=== PATIENT | female | born 1965 | race Caucasian/White ===

== ENCOUNTER 2021-01-02 11:51 | Outpatient (REF) | payer MEDICAID, SELFPAY ==
--- NOTE | ~2021-01-02 | XR_ITS ---
EXAMINATION: XR KNEE, RIGHT XR LUMBOSACRAL SPINE. CLINICAL INDICATION: Pain. COMPARISON: None TECHNIQUE: 4 views of the right knee. 3 views of the lumbosacral spine. RIGHT KNEE: 4 views of the right knee and straight lrrh-qb-oavtaanl medial joint space loss. Some marginal spurring is noted here. Mild patellofemoral spurring. No significant effusion. The patella is well seated. LUMBOSACRAL SPINE: 3 views of the lumbosacral spine show normal lordosis. No listhesis or compression injury. Early degeneration with loss of disc height at L4-L5 and L5-S1 greater than other levels. Hypertrophic changes in the posterior elements at L5-S1 greater than L4-L5. The SI joints are grossly patent. Mild scoliosis convex right. Calcified aorta more anterior. XR/XR lumbar spine 2-3V IMPRESSION: Llrv-kp-hafouoao degenerative changes in the lumbar spine most noted mid to lower lumbar region. Gocx-rc-nldejyqr degenerative change in the right knee.
--- NOTE | ~2021-01-02 | XR_ITS ---
EXAMINATION: XR KNEE, RIGHT XR LUMBOSACRAL SPINE. CLINICAL INDICATION: Pain. COMPARISON: None TECHNIQUE: 4 views of the right knee. 3 views of the lumbosacral spine. RIGHT KNEE: 4 views of the right knee and straight exjf-rz-cyrvyjao medial joint space loss. Some marginal spurring is noted here. Mild patellofemoral spurring. No significant effusion. The patella is well seated. LUMBOSACRAL SPINE: 3 views of the lumbosacral spine show normal lordosis. No listhesis or compression injury. Early degeneration with loss of disc height at L4-L5 and L5-S1 greater than other levels. Hypertrophic changes in the posterior elements at L5-S1 greater than L4-L5. The SI joints are grossly patent. Mild scoliosis convex right. Calcified aorta more anterior. XR/XR knee RT 4V IMPRESSION: Dmtk-xy-hzftclox degenerative changes in the lumbar spine most noted mid to lower lumbar region. Fqoy-fj-plcmtsmp degenerative change in the right knee.
[2021-01-02 12:58] LABS: MANUAL DIFF FLAG NO
[2021-01-02 13:02] LABS: Glucose Urine UA NEG (NEG); Leukocyte Esterase Urine NEG (NEG); Nitrite Urine NEG (NEG); PH 6.5 (5.0-8.0); Specific Gravity - Urine <= 1.005 (1.005-1.025); Urine Blood 1+ (NEG); Urine Ketones NEG (NEG); Urine Protein NEG (NEG-TRACE)
[2021-01-02 13:05] LABS: Basophils Absolute Auto 0.1 X10*3/uL (0.0-0.2); Basophils Percent Auto 0.6 % (0-2); Eosinophils Absolute Auto 0.2 X10*3/uL (0.0-0.4); Eosinophils Percent Auto 2.4 % (0-4); Hematocrit 37.2 % (37-47); Hemoglobin 12.5 g/dl (12.0-16.0); Imm Gran Abs Auto 0.03 X10*3/uL (0.00-0.03); Imm Gran Pct Auto 0.4 % (0.0-0.4); Lymphocytes Absolute Auto 1.7 X10*3/uL (1.2-4.9); Lymphocytes Percent Auto 21.2 % (20-40); Mean Corpuscular HGB Conc 33.6 g/dl (31.0-35.0); Mean Corpuscular Hemoglobin 31.6 pg (27.0-33.0); Mean Corpuscular Volume 93.9 fL (80-98); Mean Platelet Volume 9.7 fL (9.4-12.3); Monocytes Absolute Auto 0.5 X10*3/uL (0.1-1.2); Neutrophils Absolute Auto 5.5 X10*3/uL (2.0-8.3); Neutrophils Percent Auto 69.4 % (45-73); Platelet Count 326 X10*3/uL (160-400); Red Blood Count 3.96 X10*6/uL (4.20-5.50); Red Cell Distribution Width 12.6 % (11.0-16.0); White Blood Count 7.9 X10*3/uL (4.8-10.8)
[2021-01-02 13:06] LABS: Appearance Urine HAZY; Color Urine YELLOW
[2021-01-02 13:12] LABS: WBC Urine 0 /HPF (0-4)
[2021-01-02 13:22] LABS: Alanine Aminotransferase 16 U/L (0-31); Albumin Level 4.3 g/dL (3.5-5.0); Alkaline Phosphatase 54 U/L (39-117); Anion Gap 12 (12-20); Aspartate Amino Transferase 13 U/L (5-31); Bilirubin Total < 0.2 mg/dL (0.0-1.0); Blood Urea Nitrogen 10 mg/dL (9-16); Calcium 9.5 mg/dL (8.4-10.2); Carbon Dioxide 30 mmol/L (22-29); Chloride 103 mmol/L (96-108); Cholesterol 313 mg/dL; Estimated Glomerular Filt Rate > 60; Glucose Fasting 103 mg/dL (60-99); HDL Cholesterol 43 mg/dL; LDL Cholesterol Calculated 226 mg/dl; Potassium 4.1 mmol/L (3.3-5.1); Sodium 141 mmol/L (135-145); Triglycerides 221 mg/dL
[2021-01-02 13:43] LABS: Free T4 (Free Thyroxine) 0.89 ng/dL (0.71-1.85)
== END 2021-01-02 11:52 | disposition home or self-care (01) ==
LOC: HO.LAB 11:51
PROVIDERS: PCP Internal Medicine; Visit Provider Internal Medicine
DX: I10 Essential (primary) hypertension (principal); K21.9 Gastro-esophageal reflux disease without esophagitis; R06.02 Shortness of breath; M54.9 Dorsalgia, unspecified; M25.561 Pain in right knee
CPT/HCPCS: 36415; 72100; 73564; 80053; 80061; 81001; 81003; 84439; 84443; 85025; 87086

== ENCOUNTER 2021-03-14 12:42 | Outpatient (REF) | payer MEDICAID, SELFPAY ==
--- NOTE | ~2021-03-14 | MM_ITS ---
EXAMINATION: MM SCREENING DIGITAL BREAST TOMOSYNTHESIS, BILATERAL CLINICAL INFORMATION: Screening. Asymptomatic. Remote prior mammography over 10 years ago, purged. No known family history breast cancer. The lifetime risk of breast cancer based on the Tyrer-Cuzick Model is 5%. COMPARISON: None (current study represents new baseline exam). TECHNIQUE: Digital breast tomosynthesis is performed in both the craniocaudal and mediolateral oblique views along with computer-aided detection (CAD). Synthesized 2D images are generated from the tomosynthesis. FINDINGS: There are scattered areas of fibroglandular density (ACR BI-RADS breast composition Category b). There are no significant masses, abnormal calcifications, or other abnormalities. The axilla and skin contours are unremarkable. MM/MM tomosynthesis screening BI IMPRESSION: No mammographic evidence of malignancy. ASSESSMENT: BI-RADS 1: Negative RECOMMENDATION: Routine annual mammography screening. This patient's information was entered into a reminder system with a target due date for their next mammogram.
--- NOTE | ~2021-03-14 | MM_ITS ---
EXAMINATION: BONE DENSITOMETRY CLINICAL INDICATION: Encounter for screening for osteoporosis. COMPARISON: None (current study represents initial baseline exam). TECHNIQUE: Using a [employer] Mobile DXA System (software version: 13.1) manufactured by [employer], dual-energy x-ray absorptiometry was performed of the lumbar spine and left hip. The images are of good technical quality. Summary results are attached. FINDINGS: AP SPINE L1-L4: BMD 1.197 g/cm2, Z-score 0.5, T-score 0.1, normal. LEFT FEMUR, NECK: BMD 0.843 g/cm2, Z-score -0.7, T-score -1.4, osteopenia. LEFT FEMUR, TOTAL: BMD 1.022 g/cm2, Z-score 0.5, T-score 0.1, normal. IDENTIFIED RISK FACTORS: Early menopause, secondary osteoporosis, low calcium intake, thiazide. HISTORY OF FRACTURE: None listed. MEDICATIONS: None listed. MM/XR DEXA axial skeleton IMPRESSION: 1. DIAGNOSIS: Osteopenia based on the lowest T-score value of -1.4 in the femoral neck applying World Health Organization criteria. 2. 10-YEAR FRACTURE RISK PREDICTION, FRAX: Major osteoporotic fracture (clinical spine, forearm, hip or shoulder) 6.4%. Hip fracture 0.4%. 3. Treatment Recommendations: NOF guidelines recommend consideration for treatment in postmenopausal women and men age 50 and older presenting with the following: -A hip or vertebral (clinical or morphometric) fracture. -T-score less than or equal to -2.5 at the femoral neck or spine after appropriate evaluation to exclude secondary causes. -Low bone mass at the hip or spine and a 10-year fracture probability by FRAX of greater than or equal to 3% for hip fracture or greater than or equal to 20% for major osteoporotic fracture based on the [place] adapted WHO algorithm. 4. Other Recommendations: All treatment decisions require clinical judgment and consideration of individual patient factors, including patient preferences, comorbidities, previous drug use, risk factors not captured in the FRAX model (e.g. frailty, falls, vitamin D deficiency, increased bone turnover, interval significant decline in bone density) and possible under or overestimation of fracture risk by FRAX. Additional medical evaluation for secondary cause of low bone mineral density may be appropriate. FUTURE SCAN RECOMMENDATION: People with diagnosed cases of osteoporosis or at high risk for fracture should have regular bone mineral density tests. For patients eligible for Medicare, routine testing is allowed once every 2 years. The testing frequency can be increased to one year for patients who have rapidly progressing disease, those who are receiving or discontinuing medical therapy to restore bone mass, or have additional risk factors.
== END 2021-03-14 12:43 | disposition home or self-care (01) ==
LOC: HO.MAMMO 12:42
PROVIDERS: Visit Provider Internal Medicine
DX: Z12.31 Encounter for screening mammogram for malignant neoplasm of breast (principal); Z13.820 Encounter for screening for osteoporosis; M85.80 Other specified disorders of bone density and structure, unspecified site; Z78.0 Asymptomatic menopausal state
CPT/HCPCS: 77063; 77067; 77080

== ENCOUNTER 2021-03-29 10:14 | Outpatient (REF) | payer MEDICAID, SELFPAY ==
[2021-03-29 11:18] LABS: Alanine Aminotransferase 16 U/L (0-31); Albumin Level 4.6 g/dL (3.5-5.0); Alkaline Phosphatase 57 U/L (39-117); Anion Gap 14 (12-20); Aspartate Amino Transferase 17 U/L (5-31); Bilirubin Total 0.5 mg/dL (0.0-1.0); Blood Urea Nitrogen 9 mg/dL (9-16); Calcium 9.7 mg/dL (8.4-10.2); Carbon Dioxide 29 mmol/L (22-29); Chloride 102 mmol/L (96-108); Cholesterol 217 mg/dL; Estimated Glomerular Filt Rate > 60; Glucose Fasting 111 mg/dL (60-99); HDL Cholesterol 42 mg/dL; LDL Cholesterol Calculated 145 mg/dl; Potassium 3.6 mmol/L (3.3-5.1); Sodium 141 mmol/L (135-145); Total Protein 7.5 g/dL (6.5-8.0); Triglycerides 153 mg/dL
== END 2021-03-29 10:15 | disposition home or self-care (01) ==
LOC: HO.LAB 10:14
PROVIDERS: Visit Provider Internal Medicine
DX: I10 Essential (primary) hypertension (principal); E78.00 Pure hypercholesterolemia, unspecified
CPT/HCPCS: 36415; 80053; 80061

== ENCOUNTER 2021-05-04 12:11 | Outpatient (REF) | payer MEDICAID, SELFPAY ==
[2021-05-07 09:43] LABS: TS Negative Control Passed; TS Panel A 0; TS Panel B 0; TS Positive Control Passed; TSpotTB Negative (Negative)
== END 2021-05-04 12:12 | disposition home or self-care (01) ==
LOC: HO.HMGCLDS 12:11
PROVIDERS: PCP Internal Medicine; Visit Provider Internal Medicine
DX: Z11.1 Encounter for screening for respiratory tuberculosis (principal)
CPT/HCPCS: 36415; 86481

== ENCOUNTER 2021-12-21 09:59 | Outpatient (REF) | payer MEDICAID, SELFPAY ==
--- NOTE | ~2021-12-21 | XR_ITS ---
EXAMINATION: XR KNEE, LEFT CLINICAL INFORMATION: Pain. No known injury. COMPARISON: Radiograph of the right knee 01/02/2021. TECHNIQUE: Four views of the left knee. FINDINGS: No acute fracture or malalignment. Mild to moderate joint space narrowing and subcortical sclerosis of the medial compartment. Minimal chondrocalcinosis of the medial compartment. Small calcifications along the insertion site of the quadriceps tendon. No joint effusion. XR/XR knee LT 4V IMPRESSION: No acute fracture or malalignment. 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 Calcific tendinosis along the insertion site of the quadriceps tendon.
[2021-12-21 10:20] LABS: MANUAL DIFF FLAG NO
[2021-12-21 10:59] LABS: Basophils Absolute Auto 0.1 X10*3/uL (0.0-0.2); Basophils Percent Auto 0.7 % (0-2); Eosinophils Absolute Auto 0.3 X10*3/uL (0.0-0.4); Eosinophils Percent Auto 3.8 % (0-4); Hematocrit 37.8 % (37.0-47.0); Hemoglobin 12.9 g/dl (12.0-16.0); Imm Gran Abs Auto 0.03 X10*3/uL (0.00-0.03); Imm Gran Pct Auto 0.4 % (0.0-0.4); Lymphocytes Percent Auto 26.2 % (20-40); Mean Corpuscular HGB Conc 34.1 g/dl (31.0-35.0); Mean Corpuscular Hemoglobin 32.4 pg (27.0-33.0); Mean Platelet Volume 9.9 fL (9.4-12.3); Monocytes Absolute Auto 0.4 X10*3/uL (0.1-1.2); Monocytes Percent Auto 5.6 % (2-11); Neutrophils Absolute Auto 4.7 x10*3/uL (2.0-8.3); Neutrophils Percent Auto 63.3 % (45-73); Platelet Count 283 X10*3/uL (160-400); Red Blood Count 3.98 X10*6/uL (4.20-5.50); Red Cell Distribution Width 13.2 % (11.0-16.0); White Blood Count 7.5 X10*3/uL (4.8-10.8)
[2021-12-21 11:32] LABS: Alanine Aminotransferase 14 U/L (0-31); Albumin Level 4.4 g/dL (3.5-5.0); Alkaline Phosphatase 44 U/L (39-117); Anion Gap 15 (12-20); Aspartate Amino Transferase 14 U/L (5-31); Bilirubin Total 0.4 mg/dL (0.0-1.0); Blood Urea Nitrogen 8 mg/dL (9-16); Calcium 9.3 mg/dL (8.4-10.2); Carbon Dioxide 27 mmol/L (22-29); Chloride 103 mmol/L (96-108); Estimated Glomerular Filt Rate > 60; Glucose Random 108 mg/dL (60-115); Potassium 3.9 mmol/L (3.3-5.1); Sodium 141 mmol/L (135-145); Total Protein 6.9 g/dL (6.5-8.0)
[2021-12-21 11:41] LABS: Free T4 (Free Thyroxine) 0.97 ng/dL (0.71-1.85); Thyroid Stimulating Hormone 1.54 uIU/mL (0.32-4.0)
[2021-12-21 11:54] LABS: Vitamin B12 < 146 pg/mL (200-900)
== END 2021-12-21 10:00 | disposition home or self-care (01) ==
LOC: HO.XRAY 09:59
PROVIDERS: PCP Internal Medicine; Visit Provider Internal Medicine
DX: M25.562 Pain in left knee (principal); I10 Essential (primary) hypertension; R53.83 Other fatigue
CPT/HCPCS: 36415; 73564; 80053; 82607; 84439; 84443; 85025

== ENCOUNTER → 2022-02-01 11:00 | Day surgery (SDC) | payer MEDICAID, SELFPAY ==
--- NOTE | 2022-01-31 09:31 | HO.ANESPROP2 ---
Documented by User: Rosa Finley NP 01/31/22 09:32 HPI - Anesthesia Eval Consult details Narrative: 56yo F for Colonoscopy [facility] Past Medical History Medical History Hypercholesteremia Hypertension Melanoma Surgical History Surgical History History of tonsillectomy History of tooth extraction History of tubal ligation Hx of section S/P excision of lipoma Social History Social History Patient Tobacco Use Status: Never used Tobacco Use of substances other than those prescribed or required for medical reasons: Yes Substance Use Type Other:: 2x week Are you DNR?: No Advance Directives: No Advance Directives Information Provided: Yes Meds Allergies Allergy/AdvReac Type Severity Reaction Status Date / Time latex [LATEX] Allergy Mild ITCHING Unverified 01/29/22 10:39 cats Allergy Unknown Unknown Uncoded 01/29/22 10:39 Home Medications Medication Instructions Recorded Confirmed Last Taken Type amlodipine 5 mg tablet 1 tab PO DAILY 01/29/22 02/01/22 02/01/22 History atorvastatin 20 mg tablet 1 tab PO BEDTIME 01/29/22 01/29/22 Unknown History cholecalciferol (vitamin D3) 50 50 mcg PO DAILY 01/29/22 01/29/22 Unknown History mcg (2,000 unit) capsule (Vitamin D3) hydrochlorothiazide 25 mg tablet 1 tab PO DAILY 01/29/22 01/29/22 Unknown History vitamin B complex 1 cap PO DAILY 01/29/22 01/29/22 Unknown History Exam Exam Date and Time: January 31, [id number] Pertinent Lab Results Pertinent Lab Results: Laboratory Tests 12/21/21 12/21/21 10:18 10:18 WBC 7.5 Hgb 12.9 Hct 37.8 Plt Count 283 Sodium 141 Potassium 3.9 Chloride 103 Carbon Dioxide 27 BUN 8 L Creatinine 0.73 Assessment and Plan Assessment Anesthesia Assessment: Chart Reviewed Documented by User: Eleni Tolliver MD 02/01/22 12:44 [facility] Past Medical History Medical History Hypercholesteremia Hypertension Melanoma Family History Family history of problems with anesthesia: No Surgical History Surgical History History of tonsillectomy History of tooth extraction History of tubal ligation Hx of section S/P excision of lipoma History of Problems with Anesthesia: No Social History Social History Patient Tobacco Use Status: Never used Tobacco Use of substances other than those prescribed or required for medical reasons: Yes Substance Use Type Other:: 2x week Are you DNR?: No Advance Directives: No Advance Directives Information Provided: Yes Meds Allergies Allergy/AdvReac Type Severity Reaction Status Date / Time latex [LATEX] Allergy Mild ITCHING Unverified 01/29/22 10:39 cats Allergy Unknown Unknown Uncoded 01/29/22 10:39 Home Medications Medication Instructions Recorded Confirmed Last Taken Type amlodipine 5 mg tablet 1 tab PO DAILY 01/29/22 02/01/22 02/01/22 History atorvastatin 20 mg tablet 1 tab PO BEDTIME 01/29/22 01/29/22 Unknown History cholecalciferol (vitamin D3) 50 50 mcg PO DAILY 01/29/22 01/29/22 Unknown History mcg (2,000 unit) capsule (Vitamin D3) hydrochlorothiazide 25 mg tablet 1 tab PO DAILY 01/29/22 01/29/22 Unknown History vitamin B complex 1 cap PO DAILY 01/29/22 01/29/22 Unknown History Exam Height,Weight and Vital Signs: Height 4 ft 10 in Weight 83.461 kg Vital Signs Temp Pulse Resp BP Pulse Ox O2 Del Method 02/01/22 11:25 97.5 F 85 16 165/83 H 97 Room Air Airway Mallampati Class: II TM Dist: >3cm Neck ROM: Full Denture: Upper Partial: Lower Loose/Missing/Broken Teeth: Yes (Some teeth bottom. None loose or broken ) Heart: RRR Lungs: CTAB Assessment and Plan Assessment Anesthesia Assessment: Anesthesia Plan Discussed Final Anesthetic Review Family History of Problems with Anesthesia: No History of Problems with Anesthesia: No NPO: Yes ASA Class: II Final Preanesthetic Review: No Changes in Pt Med Stat, Meds/Allgs Chart Reviewed, Consent Obtained/Reviewed and Anes Risks/Benef Reviewed Patient Risk: Low Procedure Risk: Low Assessment/Block/Sedation in SS: Assess/Block/Sedation-SS Anesthetic Plan Anesthetic Plan: MAC: Disposition: Standard PACU
[2022-02-01 11:17] VITALS: BMI 38.4
[2022-02-01 11:25] VITALS: BP 165/83; PULSE 85; RESP 16; TEMP 36.4; O2SAT 97
[2022-02-01 11:26] VITALS: BMI 38.4
[2022-02-01] MEDS: Lactated Ringers 1,000 ML 100 ML IVCONT (11:42)
--- NOTE | 2022-02-01 12:20 | MHC.SHP ---
Pre-Procedural Eval Section A Date of Service: 02/01/22 Section B Chief Complaint: screening Details of Present Illness: see H&P no changes Relevant Family History (Specify if Yes): No Relevant Social History: None Present Medications: see Short Stay Collaborative assessment Medical History: No relevant PMH History of Previous Operations: No relevant previous surgery Allergies: Allergies Allergy/AdvReac Type Severity Reaction Status Date / Time latex [LATEX] Allergy Mild ITCHING Unverified 01/29/22 10:39 cats Allergy Unknown Unknown Uncoded 01/29/22 10:39 Review of Systems Sugical H&P ROS: Negative: Constitution, Cardiovascular, Respiratory, Neurological, Psychiatric, Hem-Onc, Allergic/Immunologic, Gastrointestinal, Genitourinary, Musculoskeletal, Integumentary, Endocrine and Eyes/Ears/Nose/Throat Exam Surgical H&P Exam: Normal: HEENT, Normal: Heart, Normal: Lungs, Normal: Extremities, Normal: Abdomen, Normal: Skin and Normal: Neurological Plan I have reviewed the history and physical and performed a pertinent physical examination on my patient. No changes have occurred unless specified.
--- NOTE | 2022-02-01 12:48 | PM.OP ---
Brief Operative Note Date of Service: 02/01/22 Surgeon: Edmar Powell Anesthesia: MAC Was an Logistics Team Leader used for this Procedure?: No Estimated blood loss (mL): 0 Pathology: none sent Condition: stable Disposition: PACU
[2022-02-01 12:52] VITALS: BP 103/57; PULSE 67; RESP 16; TEMP 37.2; O2SAT 99
[2022-02-01 13:07] VITALS: BP 125/67; PULSE 68; RESP 16; TEMP 36.4; O2SAT 97
--- NOTE | 2022-02-02 01:35 | OP_ITS ---
SURGEON: Edmar Powell MD INDICATIONS: Colon cancer screening. PREOPERATIVE DIAGNOSIS: POSTOPERATIVE DIAGNOSIS: PROCEDURE PERFORMED: Colonoscopy to the terminal colon on 02/01/22 ESTIMATED BLOOD LOSS: COMPLICATIONS: ANESTHESIA: ASSISTANTS: SPECIMENS: MEDICATIONS: Monitored anesthesia care. DESCRIPTION OF PROCEDURE: History and Physical performed. The risks and benefits of the procedure were explained to the patient. Informed consent was obtained. The patient was placed in the left lateral decubitus position. A digital rectal exam was performed and was found to be normal. The Olympus pediatric video colonoscope was introduced into the rectum and advanced to the cecum without difficulty. The cecum was identified by transillumination, palpation, and identification of ileocecal valve examination was performed. The scope was removed. She tolerated the procedure well and was taken to recovery in stable condition. FINDINGS: The terminal ileum was normal. Visualized colonic mucosa was normal. Quality of the prep was good. No polyps were identified. Retroflexed examination was normal. IMPRESSION: Normal colonoscopy. RECOMMENDATIONS: 1. Follow up as needed. 2. Repeat colonoscopy is recommended in 10 years for average risk individuals. MD RAMIREZ Smith/ABDIFATAH / [id number] MTDD
== END | disposition home or self-care (01) ==
PROVIDERS: PCP Internal Medicine; Visit Provider Internal Medicine Gastroenterology
PROC: 0DJD8ZZ Inspection of Lower Intestinal Tract, Via Natural or Artificial Opening Endoscopic (ICD-10-PCS; CPT 45378; principal; 2022-02-01 12:10)
DX: Z12.11 Encounter for screening for malignant neoplasm of colon (principal); K59.00 Constipation, unspecified; R53.83 Other fatigue; I10 Essential (primary) hypertension; E78.00 Pure hypercholesterolemia, unspecified; Z85.820 Personal history of malignant melanoma of skin; Z79.899 Other long term (current) drug therapy; Z98.51 Tubal ligation status
CPT/HCPCS: 45378; J1885; J3010

== ENCOUNTER 2022-06-11 12:24 | Outpatient (REF) | payer MEDICAID, SELFPAY ==
[2022-06-11 12:38] LABS: MANUAL DIFF FLAG NO
[2022-06-11 13:12] LABS: Basophils Absolute Auto 0.1 X10*3/uL (0.0-0.2); Basophils Percent Auto 1.1 % (0-2); Eosinophils Absolute Auto 0.2 X10*3/uL (0.0-0.4); Eosinophils Percent Auto 3.2 % (0-4); Hematocrit 40.7 % (37.0-47.0); Hemoglobin 13.7 g/dl (12.0-16.0); Imm Gran Abs Auto 0.04 X10*3/uL (0.00-0.03); Imm Gran Pct Auto 0.6 % (0.0-0.4); Lymphocytes Absolute Auto 1.9 X10*3/uL (1.2-4.9); Lymphocytes Percent Auto 26.6 % (20-40); Mean Corpuscular HGB Conc 33.7 g/dl (31.0-35.0); Mean Corpuscular Hemoglobin 31.4 pg (27.0-33.0); Mean Corpuscular Volume 93.3 fL (80.0-98.0); Mean Platelet Volume 10.3 fL (9.4-12.3); Monocytes Absolute Auto 0.5 X10*3/uL (0.1-1.2); Monocytes Percent Auto 6.8 % (2-11); Neutrophils Absolute Auto 4.5 x10*3/uL (2.0-8.3); Neutrophils Percent Auto 61.7 % (45-73); Platelet Count 252 X10*3/uL (160-400); Red Blood Count 4.36 X10*6/uL (4.20-5.50); Red Cell Distribution Width 12.6 % (11.0-16.0); White Blood Count 7.2 X10*3/uL (4.8-10.8)
[2022-06-11 14:33] LABS: Alanine Aminotransferase 12 U/L (0-31); Albumin Level 4.4 g/dL (3.5-5.0); Alkaline Phosphatase 42 U/L (39-117); Anion Gap 13 (12-20); Aspartate Amino Transferase 15 U/L (5-31); Bilirubin Total 0.3 mg/dL (0.0-1.0); Blood Urea Nitrogen 10 mg/dL (9-16); C Reactive Protein 0.31 mg/dL (< or = 0.50); Calcium 9.9 mg/dL (8.4-10.2); Carbon Dioxide 29 mmol/L (22-29); Chloride 103 mmol/L (96-108); Estimated Glomerular Filt Rate > 60; Glucose Random 113 mg/dL (60-115); Sodium 141 mmol/L (135-145); Total Protein 7.2 g/dL (6.5-8.0)
[2022-06-11 14:52] LABS: Free T4 (Free Thyroxine) 0.84 ng/dL (0.71-1.85); Thyroid Stimulating Hormone 3.54 uIU/mL (0.32-4.0)
== END 2022-06-11 12:25 | disposition home or self-care (01) ==
LOC: HO.LAB 12:24
PROVIDERS: PCP Internal Medicine; Visit Provider Internal Medicine
DX: I10 Essential (primary) hypertension (principal); R53.83 Other fatigue; R25.1 Tremor, unspecified; M62.838 Other muscle spasm
CPT/HCPCS: 36415; 80053; 83735; 84439; 84443; 85025; 86140

== ENCOUNTER 2022-07-08 09:30 | Outpatient (REF) | payer MEDICAID, SELFPAY ==
--- NOTE | ~2022-07-08 | XR_ITS ---
EXAMINATION: XR KNEE, RIGHT CLINICAL INFORMATION: Pain. COMPARISON: January 02, 2021 TECHNIQUE: Four views of the right knee. FINDINGS: There is no evidence of acute fracture or dislocation of the right knee. There is mild narrowing of the medial joint space compartment. There is mild marginal spurring seen about the medial and lateral joint spaces. There is a small suprapatellar effusion. There is a small patella spurs at insertion of the quadriceps tendon. There is superior and inferior patella spurring at the patellofemoral joint involving the medial facet. XR/XR knee RT 4V IMPRESSION: Mild degenerative disease about the medial and patellofemoral joints. Small suprapatellar effusion. These findings are stable.
--- NOTE | ~2022-07-08 | XR_ITS ---
EXAMINATION: XR CERVICAL SPINE CLINICAL INFORMATION: Cervical pain COMPARISON: None TECHNIQUE: 5 views of the cervical spine. FINDINGS: No abnormal prevertebral soft tissue swelling is seen. No acute spine fracture is noted. There is narrowing of the C5-C6 disc space with marginal spurring. There is some anterior neural foraminal encroachment at the C5-C6 level from spurring of the joints of [place] bilaterally. There are small C7 cervical ribs. There is some facet arthropathy present at the C3-C5 levels on the right and C2-C6 on the left. XR/XR cervical spine 5V IMPRESSION: Cervical spondylosis as described.
--- NOTE | ~2022-07-08 | XR_ITS ---
EXAMINATION: XR HAND, RIGHT CLINICAL INFORMATION: Right hand pain COMPARISON: None TECHNIQUE: PA, lateral, and oblique views of the right hand. FINDINGS: There is no evidence of acute fracture or dislocation of the right hand. There is some mild spurring seen involving the 1st carpometacarpal joint. There is mild spurring seen involving the 1st interphalangeal joint as well as all of the distal interphalangeal joints. XR/XR hand RT min 3V IMPRESSION: Mild degenerative change as described.
== END 2022-07-08 09:31 | disposition home or self-care (01) ==
LOC: HO.XRAY 09:30
PROVIDERS: PCP Internal Medicine; Visit Provider Internal Medicine
DX: M54.2 Cervicalgia (principal); M79.641 Pain in right hand; M25.531 Pain in right wrist; M25.561 Pain in right knee
CPT/HCPCS: 72050; 73130; 73564

== ENCOUNTER 2022-09-24 10:18 | Outpatient (REF) | payer MEDICAID, SELFPAY ==
[2022-09-24 11:15] LABS: Anion Gap 13 (12-20); Blood Urea Nitrogen 8 mg/dL (9-16); Calcium 9.7 mg/dL (8.4-10.2); Carbon Dioxide 27 mmol/L (22-29); Chloride 105 mmol/L (96-108); Estimated Glomerular Filt Rate > 60; Glucose Random 117 mg/dL (60-115); Potassium 3.7 mmol/L (3.3-5.1); Sodium 141 mmol/L (135-145)
[2022-09-24 11:23] LABS: Estimated Average Glucose 97 mg/dL
[2022-09-24 11:36] LABS: Free T4 (Free Thyroxine) 0.94 ng/dL (0.71-1.85)
== END 2022-09-24 10:19 | disposition home or self-care (01) ==
LOC: HO.LAB 10:18
PROVIDERS: PCP Internal Medicine; Visit Provider Internal Medicine
DX: R73.03 Prediabetes (principal); I10 Essential (primary) hypertension; R79.89 Other specified abnormal findings of blood chemistry
CPT/HCPCS: 36415; 80048; 83036; 84439; 84443

== ENCOUNTER 2022-10-25 15:44 | Outpatient (REF) | payer MEDICAID, SELFPAY ==
--- NOTE | ~2022-10-25 | MR_ITS ---
EXAMINATION: MR CERVICAL SPINE WITHOUT CONTRAST CLINICAL INFORMATION: DDD. Bilateral arm numbness lying flat. COMPARISON: None available. TECHNIQUE: MRI of the cervical spine was performed using routine sequences without contrast. FINDINGS: The cervical vertebral bodies maintain normal heights. There is advanced disc height loss at C5-C6 with endplate edema. The remainder the disc heights are fairly well preserved. No cord signal abnormality is seen. The imaged intracranial contents and extraspinal soft tissues appear normal. There is scarring within the posterior midline subcutaneous fat. SPINAL LEVELS: C2-C3: No posterior disc abnormality. Moderate left facet arthropathy. No spinal canal or neural foraminal stenosis. C3-C4: No posterior disc abnormality. Moderate left facet arthropathy. No spinal canal or neural foraminal stenosis. C4-C5: No posterior disc abnormality. Moderate right and mild left facet arthropathy. No spinal canal or neural foraminal stenosis. C5-C6: Disc osteophyte complex with ligamentum flavum infolding resulting in moderate spinal canal stenosis with ventral cord deformity. Uncovertebral hypertrophy results in severe bilateral neural foraminal stenosis. C6-C7: Disc bulging causing mild spinal canal stenosis with flattening of the ventral thecal sac. Mild left neural foraminal stenosis. C7-T1: No posterior disc abnormality. No spinal canal or neural foraminal stenosis. MR/MR cervical spine wo con IMPRESSION: 1. At C5-C6 there is advanced disc height loss with endplate edema. Disc osteophyte complex and uncovertebral hypertrophy results in moderate spinal canal stenosis with ventral cord deformity and severe bilateral neural foraminal stenosis. 2. Additional milder spondylotic changes are noted above.
== END 2022-10-25 15:45 | disposition home or self-care (01) ==
LOC: HO.MRI 15:44
PROVIDERS: PCP Internal Medicine; Visit Provider Internal Medicine
DX: M50.33 Other cervical disc degeneration, cervicothoracic region (principal)
CPT/HCPCS: 72141

== ENCOUNTER 2023-01-21 09:35 | Outpatient (REF) | payer MEDICAID, SELFPAY ==
[2023-01-21 10:23] LABS: MANUAL DIFF FLAG NO
[2023-01-21 10:26] LABS: Basophils Absolute Auto 0.1 X10*3/uL (0.0-0.2); Basophils Percent Auto 0.9 % (0-2); Eosinophils Absolute Auto 0.5 X10*3/uL (0.0-0.4); Eosinophils Percent Auto 5.7 % (0-4); Hematocrit 40.6 % (37.0-47.0); Hemoglobin 13.6 g/dl (12.0-16.0); Imm Gran Abs Auto 0.03 X10*3/uL (0.00-0.03); Imm Gran Pct Auto 0.3 % (0.0-0.4); Lymphocytes Absolute Auto 2.2 X10*3/uL (1.2-4.9); Lymphocytes Percent Auto 25.4 % (20-40); Mean Corpuscular HGB Conc 33.5 g/dl (31.0-35.0); Mean Corpuscular Hemoglobin 30.8 pg (27.0-33.0); Mean Corpuscular Volume 92.1 fL (80.0-98.0); Mean Platelet Volume 10.5 fL (9.4-12.3); Monocytes Absolute Auto 0.6 X10*3/uL (0.1-1.2); Neutrophils Absolute Auto 5.2 x10*3/uL (2.0-8.3); Neutrophils Percent Auto 60.7 % (45-73); Platelet Count 255 X10*3/uL (160-400); Red Blood Count 4.41 X10*6/uL (4.20-5.50); Red Cell Distribution Width 12.5 % (11.0-16.0); White Blood Count 8.6 X10*3/uL (4.8-10.8)
[2023-01-21 14:02] LABS: Alanine Aminotransferase 13 U/L (0-31); Albumin Level 4.4 g/dL (3.5-5.0); Alkaline Phosphatase 39 U/L (39-117); Anion Gap 14 (12-20); Aspartate Amino Transferase 19 U/L (5-31); Bilirubin Total 0.4 mg/dL (0.0-1.0); Blood Urea Nitrogen 11 mg/dL (9-16); Calcium 9.9 mg/dL (8.4-10.2); Carbon Dioxide 28 mmol/L (22-29); Chloride 104 mmol/L (96-108); Cholesterol 241 mg/dL (<200); Estimated Glomerular Filt Rate > 60; Glucose Fasting 99 mg/dL (60-99); HDL Cholesterol 44 mg/dL (>40); LDL Cholesterol Calculated 149 mg/dL (<100); Potassium 3.6 mmol/L (3.3-5.1); Sodium 142 mmol/L (135-145); Total Protein 7.4 g/dL (6.5-8.0); Triglycerides 243 mg/dL (<150)
[2023-01-21 14:17] LABS: Vitamin B12 1270 pg/mL (200-900)
[2023-01-21 14:21] LABS: Vitamin D 25-OH Total 50.8 ng/mL (>30)
== END 2023-01-21 09:36 | disposition home or self-care (01) ==
LOC: HO.10HDL 09:35
PROVIDERS: Visit Provider Internal Medicine
DX: I10 Essential (primary) hypertension (principal); E78.00 Pure hypercholesterolemia, unspecified; E55.9 Vitamin D deficiency, unspecified; K21.9 Gastro-esophageal reflux disease without esophagitis; E53.8 Deficiency of other specified B group vitamins
CPT/HCPCS: 36415; 80053; 80061; 82306; 82607; 85025

== ENCOUNTER 2023-02-27 10:49 | Inpatient (IN) | payer MEDICAID, SELFPAY ==
[2023-02-27 10:51] VITALS: BP 156/51; PULSE 77; RESP 18; TEMP 36.8; O2SAT 98; BMI 37.2
--- NOTE | 2023-02-27 10:51 | ED.GENADULT ---
HPI - General Adult General Chief complaint: Weakness Stated complaint: nausea vomiting surgery feb 19 Time Seen by Provider: 02/27/23 12:04 Related Data Home Medications Medication Instructions Recorded Confirmed amlodipine 5 mg tablet 1 tab PO DAILY 01/29/22 02/27/23 atorvastatin 20 mg tablet 1 tab PO BEDTIME 01/29/22 02/27/23 cholecalciferol (vitamin D3) 50 50 mcg PO DAILY 01/29/22 02/27/23 mcg (2,000 unit) capsule (Vitamin D3) hydrochlorothiazide 25 mg tablet 1 tab PO DAILY 01/29/22 02/27/23 vitamin B complex 1 cap PO DAILY 01/29/22 02/27/23 famotidine 20 mg tablet 20 mg PO BID 02/27/23 02/27/23 losartan 100 mg tablet 100 mg PO DAILY 02/27/23 02/27/23 oxycodone 5 mg tablet 5 mg PO Q4H PRN pain 02/27/23 02/27/23 Previous Rx's Medication Instructions Recorded magnesium oxide 400 mg (241.3 mg 400 mg PO DAILY #90 tabs 03/03/23 magnesium) tablet ondansetron 4 mg disintegrating 4 mg PO Q6H PRN nausea and 03/03/23 tablet vomiting #20 tabs Allergies Allergy/AdvReac Type Severity Reaction Status Date / Time latex [LATEX] Allergy Mild ITCHING Verified 02/27/23 10:54 cats Allergy Unknown Unknown Uncoded 01/29/22 10:39 [facility] Past Medical History Medical History Hypercholesteremia Hypertension Melanoma Surgical History History of tooth extraction S/P excision of lipoma History of tubal ligation Hx of section History of tonsillectomy Social History Social History Housing Other:: Two family house, daughter lives on first floor Do you presently have visiting nurse or other home services: No Patient Tobacco Use Status: Never used Tobacco Smoked in Last 30 Days: No Patient Interested in Nicotine Replacement: No Patient Given Instructions on How to Stop Smoking: No Second Hand Smoke Exposure: No Use of substances other than those prescribed or required for medical reasons: Yes Substance Use Type: Marijuana Substance Use Frequency: Daily Last Used Substance: Days (ago) Currently Displaying Signs/Symptoms of Drug Intoxication Withdrawal: No Any prior treatment program specific to substance use: No Have you been hit, kicked, punched, or otherwise hurt by someone within the past year? If so, by whom?: No Do you feel safe in your current relationship?: No Current Relationship Is there a partner from a previous relationship who is making you feel unsafe now?: No Are you made to feel afraid or neglected: No Advance Directives: No Advance Directives Information Provided: No (DECLINED) Do you have thoughts of harming others: None Do you have a plan to hurt others: No Plan Recently lost weight without trying: No How much weight loss: Not applicable Eating poorly because of decreased appetite: Yes Nutrition screen score: 1 Nutrition Risks: Poor intake 0-25% >4 days Patient : No : No Poor oral hygiene: No service: No Physical Exam ED Vital Signs: BMI result Body Mass Index 37.2 Course Course Course Narrative: This is a rapid medical exam: Additional HPI, ROS, PE not included below will be deferred to primary provider. Patient is a 58-year-old female presenting to the emergency department with complaint of shakiness, headaches, nausea, vomiting, diarrhea and weakness for past 3-4 days. Has been unable to take her medications due to nausea. Had spinal surgery at [facility] one week ago, called surgeon who referred patient to urgent care, felt was unrelated to surgery. Also reports difficulty sleeping. Denies neck pain and reports pain radiating down right arm has also improved since surgery. BP elevated in triage, VS otherwise WNL. Abdomen soft and nontender. Plan: labs, UA Medications Administered Discontinued Medications Generic Name Dose Route Start Last Admin Trade Name Freq PRN Reason Stop Dose Admin Amlodipine Besylate 5 mg 02/27/23 16:00 03/03/23 07:58 Amlodipine Besylate 5 Mg Tablet PO 5 mg DAILY EMILY Administration Protocol Atorvastatin Calcium 20 mg 02/27/23 21:00 03/02/23 20:21 Atorvastatin Calcium 20 Mg Tablet PO 20 mg BEDTIME EMILY Administration Bisacodyl 10 mg 03/01/23 10:06 03/01/23 11:33 Bisacodyl 10 Mg Supp.Rect RI 03/01/23 10:07 10 mg ONCE ONE Administration Diphenhydramine HCl 25 mg 02/27/23 13:54 02/27/23 14:05 Diphenhydramine Hcl 50 Mg/Ml Vial IVPUSH 02/27/23 13:55 25 mg ONCE ONE Administration Enoxaparin Sodium 40 mg 02/27/23 15:00 03/02/23 15:52 Enoxaparin Sodium 40 Mg/0.4 Ml Syringe SUBCUT 40 mg Q24H EMILY Administration Famotidine 20 mg 02/27/23 21:00 03/03/23 07:57 Famotidine 20 Mg Tablet PO 20 mg BID EMILY Administration Potassium Chloride/Sodium Chloride 40 meq in 1,000 mls @ 150 mls/hr 02/27/23 12:15 02/27/23 21:32 Kcl 40 Meq In 0.9 % Sodium Chl IVCONT Infused .Q6H40M EMILY Infusion Sodium Chloride 1,000 mls @ 100 mls/hr 02/27/23 16:00 02/27/23 20:39 Ns IVCONT Infused .Q10H EMILY Infusion Sodium Chloride 1,000 mls @ 100 mls/hr 02/27/23 21:15 02/28/23 06:51 Ns IVCONT Infused .Q10H EMILY Infusion Potassium Chloride/Sodium Chloride 40 meq in 1,000 mls @ 100 mls/hr 02/28/23 06:45 03/01/23 05:55 Kcl 40 Meq In 0.9 % Sodium Chl IVCONT Not Given .Q10H EMILY Dextrose/Lactated Ringer's 1,000 mls @ 125 mls/hr 02/28/23 08:30 03/02/23 08:40 D5lr IVCONT Infused .Q8H EMILY Infusion Potassium Chloride 10 meq in 100 mls @ 100 mls/hr 03/02/23 08:00 03/02/23 11:52 Potassium Chloride/H20 IV 03/02/23 09:59 Infused Q1H EMILY Infusion Dextrose/Lactated Ringer's 1,000 mls @ 125 mls/hr 03/02/23 15:15 03/03/23 11:44 D5lr IVCONT 0 mls/hr .Q8H EMILY Infusion Lorazepam 0.5 mg 02/28/23 14:47 02/28/23 19:59 Lorazepam 2 Mg/Ml Vial IVPUSH 02/28/23 14:48 0.5 mg ONCE ONE Administration Losartan Potassium 100 mg 10/06/23 09:00 03/03/23 07:58 Losartan Potassium 50 Mg Tablet PO 100 mg DAILY [facility] Administration Protocol Magnesium Oxide 800 mg 03/01/23 15:10 03/03/23 07:57 Magnesium Oxide 400 Mg Tablet PO 800 mg DAILY EMILY Administration Metoclopramide HCl 10 mg 02/27/23 13:54 02/27/23 14:09 Metoclopramide Hcl 10 Mg/2 Ml Vial IVPUSH 02/27/23 13:55 10 mg ONCE ONE Administration Metoclopramide HCl 5 mg 02/27/23 16:00 02/28/23 05:48 Metoclopramide Hcl 10 Mg/2 Ml Vial IVPUSH 5 mg Q6H PRN Administration Nausea and Vomiting Metoclopramide HCl 5 mg 02/28/23 11:30 03/03/23 11:12 Metoclopramide Hcl 5 Mg Tablet PO 5 mg QIDACHS [facility] Administration Multivitamins/Vitamin C 1 tab 02/28/23 09:00 03/03/23 07:57 Multivitamin Tablet PO 1 tab DAILY EMILY Administration Ondansetron HCl 4 mg 02/27/23 12:14 02/27/23 12:31 Ondansetron Hcl 4 Mg/2 Ml Vial IVPUSH 02/27/23 12:15 4 mg ONCE ONE Administration Ondansetron HCl 4 mg 02/28/23 08:17 03/02/23 08:24 Ondansetron Hcl 4 Mg/2 Ml Vial IVPUSH 4 mg Q6H PRN Administration Nausea Ondansetron HCl 4 mg 03/03/23 10:25 03/03/23 10:35 Ondansetron Odt 4 Mg Tab.Rapdis TRANSLINGU 03/03/23 10:26 4 mg ONCE ONE Administration Oxycodone HCl 5 mg 02/27/23 15:50 03/03/23 10:16 Oxycodone Hcl Immed Release 5 Mg Tablet PO 5 mg Q4H PRN Administration Pain, Severe (Pain Scale 7-10) Potassium Chloride 40 meq 02/27/23 15:55 02/27/23 16:22 Potassium Chloride Packet 20 Meq Packet PO 02/27/23 15:56 40 meq ONCE ONE Administration Potassium Chloride 40 meq 03/01/23 14:50 03/01/23 16:21 Potassium Chloride Er 20 Meq Tab.Er.Prt PO 03/01/23 14:51 40 meq ONCE ONE Administration Potassium Chloride 40 meq 03/02/23 08:00 03/02/23 15:59 Potassium Chloride Packet 20 Meq Packet PO 03/02/23 10:01 Not Given Q2H EMILY Vitamin D 50 mcg 02/28/23 09:00 03/03/23 07:57 Cholecalciferol (Vitamin D3) 25 Mcg Tablet PO 50 mcg DAILY EMILY Administration Medical Decision Making Lab Data 02/28/23 05:57 03/02/23 12:58 Labs: Lab Results 02/27/23 02/27/23 02/28/23 Range/Units 11:02 20:20 05:57 WBC 16.5 H 11.8 H (4.8-10.8) X10*3/uL RBC 4.61 4.22 (4.20-5.50) X10*6/uL Hgb 14.2 13.1 (12.0-16.0) g/dl Hct 40.1 37.6 (37.0-47.0) % MCV 87.0 89.1 (80.0-98.0) fL MCH 30.8 31.0 (27.0-33.0) pg MCHC 35.4 H 34.8 (31.0-35.0) g/dl RDW 12.5 12.6 (11.0-16.0) % Plt Count 341 D 265 (160-400) X10*3/uL MPV 9.5 9.9 (9.4-12.3) fL Immature Gran % (Auto) 0.5 H 0.9 H (0.0-0.4) % Neut % (Auto) 82.2 H 77.9 H (45-73) % Lymph % (Auto) 9.2 L 12.9 L (20-40) % [place] % (Auto) 7.8 7.9 (2-11) % Eos % (Auto) 0.1 0.0 (0-4) % Baso % (Auto) 0.2 0.4 (0-2) % Lymph # (Auto) 1.5 1.5 (1.2-4.9) X10*3/uL [place] # (Auto) 1.3 H 0.9 (0.1-1.2) X10*3/uL Eos # (Auto) 0.0 0.0 (0.0-0.4) X10*3/uL Baso # (Auto) 0.0 0.1 (0.0-0.2) X10*3/uL Abs Immat Gran (auto) 0.08 H 0.11 H (0.00-0.03) X10*3/uL Absolute Neuts (auto) 13.5 H 9.2 H (2.0-8.3) x10*3/uL Absolute Nucleated RBC 0.000 0.000 (0.0-0.012) X10*3/uL Nucleated RBC % (auto) 0.0 0.0 (0.0-0.2) /100WBC Hold Purple Top Sodium 139 140 141 (135-145) mmol/L Potassium 2.5 L* D 3.6 D 2.9 L (3.3-5.1) mmol/L Chloride 96 105 106 (96-108) mmol/L Carbon Dioxide 24 24 21 L (22-29) mmol/L Anion Gap 22 H 15 17 (12-20) BUN 15 11 8 L (9-16) mg/dL Creatinine 0.74 0.65 0.63 (0.5-1.4) mg/dL Estim Creat Clear Calc 76.6 87.2 90.0 Estimated GFR > 60 > 60 > 60 Random Glucose 127 H 147 H 121 H (60-115) mg/dL Calcium 10.8 H D 9.0 D 9.1 (8.4-10.2) mg/dL Magnesium 2.3 (1.6-2.6) mg/dL Total Bilirubin 0.7 (0.0-1.0) mg/dL AST 22 (5-31) U/L ALT 18 (0-31) U/L Alkaline Phosphatase 49 (39-117) U/L Total Protein 8.1 H (6.5-8.0) g/dL Albumin 4.8 (3.5-5.0) g/dL Lipase 20 (8-78) U/L COVID-19 (EMILIANA) Negative (Negative) COVID-19 Clin Com See Note Influenza Type A (SIVA) Negative (Negative) Influenza Type B (SIVA) Negative (Negative) Influenza A & B Note See Note 03/01/23 Range/Units 06:06 WBC (4.8-10.8) X10*3/uL RBC (4.20-5.50) X10*6/uL Hgb (12.0-16.0) g/dl Hct (37.0-47.0) % MCV (80.0-98.0) fL MCH (27.0-33.0) pg MCHC (31.0-35.0) g/dl RDW (11.0-16.0) % Plt Count (160-400) X10*3/uL MPV (9.4-12.3) fL Immature Gran % (Auto) (0.0-0.4) % Neut % (Auto) (45-73) % Lymph % (Auto) (20-40) % [place] % (Auto) (2-11) % Eos % (Auto) (0-4) % Baso % (Auto) (0-2) % Lymph # (Auto) (1.2-4.9) X10*3/uL [place] # (Auto) (0.1-1.2) X10*3/uL Eos # (Auto) (0.0-0.4) X10*3/uL Baso # (Auto) (0.0-0.2) X10*3/uL Abs Immat Gran (auto) (0.00-0.03) X10*3/uL Absolute Neuts (auto) (2.0-8.3) x10*3/uL Absolute Nucleated RBC (0.0-0.012) X10*3/uL Nucleated RBC % (auto) (0.0-0.2) /100WBC Hold Purple Top SEE NOTE Sodium 139 (135-145) mmol/L Potassium 2.9 L (3.3-5.1) mmol/L Chloride 104 (96-108) mmol/L Carbon Dioxide 24 (22-29) mmol/L Anion Gap 14 (12-20) BUN 6 L (9-16) mg/dL Creatinine 0.67 (0.5-1.4) mg/dL Estim Creat Clear Calc 84.6 Estimated GFR > 60 Random Glucose 125 H (60-115) mg/dL Calcium 9.2 (8.4-10.2) mg/dL Magnesium (1.6-2.6) mg/dL Total Bilirubin (0.0-1.0) mg/dL AST (5-31) U/L ALT (0-31) U/L Alkaline Phosphatase (39-117) U/L Total Protein (6.5-8.0) g/dL Albumin (3.5-5.0) g/dL Lipase (8-78) U/L COVID-19 (EMILIANA) (Negative) COVID-19 Clin Com Influenza Type A (SIVA) (Negative) Influenza Type B (SIVA) (Negative) Influenza A & B Note Discharge Plan Discharge Clinical Impression: Vomiting, Acute hypokalemia Patient Disposition: Admitted As Inpatient Interventions: Admission Worksheet (ED) Last Done: 02/27/23 17:08 Discharge Date/Time: 02/27/23 17:08
[2023-02-27 11:06] LABS: MANUAL DIFF FLAG NO
[2023-02-27 11:08] LABS: Basophils Percent Auto 0.2 % (0-2); Eosinophils Percent Auto 0.1 % (0-4); Hematocrit 40.1 % (37.0-47.0); Hemoglobin 14.2 g/dl (12.0-16.0); Imm Gran Abs Auto 0.08 X10*3/uL (0.00-0.03); Imm Gran Pct Auto 0.5 % (0.0-0.4); Lymphocytes Absolute Auto 1.5 X10*3/uL (1.2-4.9); Lymphocytes Percent Auto 9.2 % (20-40); Mean Corpuscular HGB Conc 35.4 g/dl (31.0-35.0); Mean Corpuscular Hemoglobin 30.8 pg (27.0-33.0); Mean Platelet Volume 9.5 fL (9.4-12.3); Monocytes Absolute Auto 1.3 X10*3/uL (0.1-1.2); Monocytes Percent Auto 7.8 % (2-11); Neutrophils Absolute Auto 13.5 x10*3/uL (2.0-8.3); Neutrophils Percent Auto 82.2 % (45-73); Platelet Count 341 X10*3/uL (160-400); Red Blood Count 4.61 X10*6/uL (4.20-5.50); Red Cell Distribution Width 12.5 % (11.0-16.0); White Blood Count 16.5 X10*3/uL (4.8-10.8)
[2023-02-27 11:42] LABS: Alanine Aminotransferase 18 U/L (0-31); Albumin Level 4.8 g/dL (3.5-5.0); Alkaline Phosphatase 49 U/L (39-117); Anion Gap 22 (12-20); Aspartate Amino Transferase 22 U/L (5-31); Bilirubin Total 0.7 mg/dL (0.0-1.0); Blood Urea Nitrogen 15 mg/dL (9-16); Calcium 10.8 mg/dL (8.4-10.2); Carbon Dioxide 24 mmol/L (22-29); Chloride 96 mmol/L (96-108); Creatinine Clr Calc Pharmacy 76.6; Estimated Glomerular Filt Rate > 60; Glucose Random 127 mg/dL (60-115); Lipase 20 U/L (8-78); Magnesium 2.3 mg/dL (1.6-2.6); Potassium 2.5 mmol/L (3.3-5.1); Sodium 139 mmol/L (135-145); Total Protein 8.1 g/dL (6.5-8.0)
[2023-02-27 11:55] VITALS: BP 176/68; PULSE 71; RESP 18; O2SAT 98
--- NOTE | 2023-02-27 12:18 | ED.NAVMDI ---
HPI - Nausea/Vomiting/Diarrhea General Chief complaint: Weakness Stated complaint: nausea vomiting surgery feb 19 Time Seen by Provider: 02/27/23 12:04 Source: patient Mode of arrival: ambulatory Limitations: no limitations History of Present Illness HPI Narrative: This is a 58 years old female presented to the emergency department complaining of nausea vomiting for about 3 or 4 days. She states that she had surgery a [facility] for pinched nerve in the neck, she has been vomiting for the last 4 days unable to take herantihypertensive medication MD elicited complaint: nausea and vomiting Onset (ago): day(s) (4) Description of diarrhea: watery Associated nausea: Yes Associated abdominal pain: No Quality: cramping Exacerbating factors: none Related Data Home Medications Medication Instructions Recorded Confirmed amlodipine 5 mg tablet 1 tab PO DAILY 01/29/22 02/01/22 atorvastatin 20 mg tablet 1 tab PO BEDTIME 01/29/22 01/29/22 cholecalciferol (vitamin D3) 50 50 mcg PO DAILY 01/29/22 01/29/22 mcg (2,000 unit) capsule (Vitamin D3) hydrochlorothiazide 25 mg tablet 1 tab PO DAILY 01/29/22 01/29/22 vitamin B complex 1 cap PO DAILY 01/29/22 01/29/22 Allergies Allergy/AdvReac Type Severity Reaction Status Date / Time latex [LATEX] Allergy Mild ITCHING Verified 02/27/23 10:54 cats Allergy Unknown Unknown Uncoded 01/29/22 10:39 Review of Systems Constitutional: Constitutional: Reports no additional constitutional complaints ENT: Reports system reviewed and no additional complaints, except as documented Cardiovascular: Cardiovascular: Reports no additional cardiovascular complaints Gastrointestinal: Gastrointestinal: Reports nausea PMFSH Past Medical History Medical History Hypercholesteremia Hypertension Melanoma Surgical History History of tooth extraction S/P excision of lipoma History of tubal ligation Hx of section History of tonsillectomy Social History Social History Patient Tobacco Use Status: Never used Tobacco Smoked in Last 30 Days: No Use of substances other than those prescribed or required for medical reasons: Yes Substance Use Type: Marijuana Substance Use Frequency: Occasionally Last Used Substance: Days (ago) Advance Directives: No Patient : No Physical Exam Vital Signs: Vital Signs: Last Vital Signs Temp 98.3 F 02/27/23 10:51 Pulse 66 02/27/23 14:01 Resp 16 02/27/23 14:01 BP 168/68 H 02/27/23 14:01 Pulse Ox 97 02/27/23 14:01 O2 Del Method Room Air 02/27/23 14:01 BMI result Body Mass Index 37.2 Const: General: cooperative Nutritional Appearance: well nourished Orientation/consciousness: patient oriented x3 HEENT: Head: Yes normal to inspection Ears: hearing grossly normal bilaterally Face and sinus: Yes normal facial exam Mouth: Normal oral and palatal mucosa present Throat: Yes posterior oropharynx normal Neck: Neck: Yes normal visual inspection Chest: Chest palpation & inspection: normal inspection of the chest Resp: Effort & Inspection: normal respiratory effort Auscultation: clear to auscultation bilaterally Cardio: Jugular venous distension: no JVD Rate: regular rate Rhythm: regular rhythm GI: Inspection: Yes normal to inspection Palpation (GI): Soft to palpation, not firm, nontender and no guarding Auscultation: normal bowel sounds Skin: General skin exam: no rashes or lesions noted, elasticity normal and turgor normal Lesions: no lesions Rashes: no rashes Wounds: no wounds Neuro: General: patient oriented x3 Extrem: General: Yes normal to inspection Course Reevaluation(s) Reevaluation #1: STILL C/O NAUSEA WILL ADMIT Time: 14:51 Medications Administered Generic Name Dose Route Start Last Admin Trade Name Freq PRN Reason Stop Dose Admin Potassium Chloride/Sodium Chloride 40 meq in 1,000 mls @ 150 mls/hr 02/27/23 12:15 02/27/23 12:33 Kcl 40 Meq In 0.9 % Sodium Chl IVCONT 150 mls/hr .Q6H40M EMILY Administration Discontinued Medications Generic Name Dose Route Start Last Admin Trade Name Freq PRN Reason Stop Dose Admin Diphenhydramine HCl 25 mg 02/27/23 13:54 02/27/23 14:05 Diphenhydramine Hcl 50 Mg/Ml Vial IVPUSH 02/27/23 13:55 25 mg ONCE ONE Administration Metoclopramide HCl 10 mg 02/27/23 13:54 02/27/23 14:09 Metoclopramide Hcl 10 Mg/2 Ml Vial IVPUSH 02/27/23 13:55 10 mg ONCE ONE Administration Ondansetron HCl 4 mg 02/27/23 12:14 02/27/23 12:31 Ondansetron Hcl 4 Mg/2 Ml Vial IVPUSH 02/27/23 12:15 4 mg ONCE ONE Administration Medical Decision Making Medical Decision Making MDM Narrative: PRESENTED WITH NAUSEA AND VOMITING WILL GET LABS/WILL GIVE ANTIHEMETIC Differential Diagnosis Differential Diagnoses: The differential diagnosis associated with the presentation includes DEHYDRATION/LYTES ABNORMALITIES Admission/Observation Consideration of admission/observation: Escalation of care including admission/observation considered Consult Healthcare Provider Management of the patient was discussed with: Hospitalist Lab Data 02/27/23 11:02 02/27/23 11:02 Labs: Lab Results 02/27/23 Range/Units 11:02 WBC 16.5 H (4.8-10.8) X10*3/uL RBC 4.61 (4.20-5.50) X10*6/uL Hgb 14.2 (12.0-16.0) g/dl Hct 40.1 (37.0-47.0) % MCV 87.0 (80.0-98.0) fL MCH 30.8 (27.0-33.0) pg MCHC 35.4 H (31.0-35.0) g/dl RDW 12.5 (11.0-16.0) % Plt Count 341 D (160-400) X10*3/uL MPV 9.5 (9.4-12.3) fL Immature Gran % (Auto) 0.5 H (0.0-0.4) % Neut % (Auto) 82.2 H (45-73) % Lymph % (Auto) 9.2 L (20-40) % [place] % (Auto) 7.8 (2-11) % Eos % (Auto) 0.1 (0-4) % Baso % (Auto) 0.2 (0-2) % Lymph # (Auto) 1.5 (1.2-4.9) X10*3/uL [place] # (Auto) 1.3 H (0.1-1.2) X10*3/uL Eos # (Auto) 0.0 (0.0-0.4) X10*3/uL Baso # (Auto) 0.0 (0.0-0.2) X10*3/uL Abs Immat Gran (auto) 0.08 H (0.00-0.03) X10*3/uL Absolute Neuts (auto) 13.5 H (2.0-8.3) x10*3/uL Absolute Nucleated RBC 0.000 (0.0-0.012) X10*3/uL Nucleated RBC % (auto) 0.0 (0.0-0.2) /100WBC Sodium 139 (135-145) mmol/L Potassium 2.5 L* D (3.3-5.1) mmol/L Chloride 96 (96-108) mmol/L Carbon Dioxide 24 (22-29) mmol/L Anion Gap 22 H (12-20) BUN 15 (9-16) mg/dL Creatinine 0.74 (0.5-1.4) mg/dL Estim Creat Clear Calc 76.6 Estimated GFR > 60 Random Glucose 127 H (60-115) mg/dL Calcium 10.8 H D (8.4-10.2) mg/dL Magnesium 2.3 (1.6-2.6) mg/dL Total Bilirubin 0.7 (0.0-1.0) mg/dL AST 22 (5-31) U/L ALT 18 (0-31) U/L Alkaline Phosphatase 49 (39-117) U/L Total Protein 8.1 H (6.5-8.0) g/dL Albumin 4.8 (3.5-5.0) g/dL Lipase 20 (8-78) U/L COVID-19 (EMILIANA) Negative (Negative) COVID-19 Clin Com See Note Influenza Type A (SIVA) Negative (Negative) Influenza Type B (SIVA) Negative (Negative) Influenza A & B Note See Note External Record Review External record reviewed: Outpatient record REVIEWED RECORD FROM [facility] PT HAD ARTHROPLASTY CERVICAL ANTERIOR c5-6 ON 02/19/23 Discharge Plan Discharge Clinical Impression: Vomiting, Acute hypokalemia Patient Disposition: Admitted As Inpatient
[2023-02-27 14:01] VITALS: BP 168/68; PULSE 66; RESP 16; O2SAT 97
--- NOTE | 2023-02-27 14:59 | PM.IMHP ---
History of Present Illness Date of Service: 02/27/23 Attending physician on admission: Areli Gaona Chief Complaint: vomiting 58-year-old female with history of hypercholesterolemia, hypertension, history of melanoma presented to the ED for evaluation of nausea and vomiting ongoing for about 4 days. Reports she had cervical spine surgery (anterior) last week on 02/19 and had been recovering well taking tylenol with codeine intermittently for pain (had taken codeine in the past without issue). Four days ago, took off the surgical bandaid and felt nauseated and vomited after looking at her neck. There is no erythema or purulent drainage or bleeding. Since then has has near constant nausea and vomiting. She reports she had been constipated following surgery but took laxatives and was able to move her bowels 4 days ago and denies constipation since. Has not been able to tolerate PO including fluids. Denies any hemetemesis. She does smoke marijuana regularly but no other substance use. No cigarettes or etoh. No fevers, chills, upper respiratory symptoms, abdominal pain, diarrhea, melena, hematochezia, lightheadedness, headache, shortness of breath, chest pain. On arrival, patient hypertensive to 176/68, vital signs otherwise within normal limits. She has a leukocytosis of 16.5. Renal function normal. Potassium 2.5, calcium 10.8, electrolytes otherwise within normal limits. Negative for COVID-19 influenza. EKG shows NSR, rate 74 with T wave inversions noted in III, AvF, V1, V4. In ED, given 40meq IV KCl, ondansetron, Benadryl, and Reglan. Review of Systems Review of Systems: General: No fevers, malaise, unintentional weight loss HEENT: No blurred vision, diplopia. No sore throat, nasal congestion, rhinorrhea, sinus pain, ear pain Cardiovascular: No chest pain, palpitations, or leg edema Respiratory: No shortness of breath, wheezing, cough GI: +nausea, +vomiting. No abdominal pain, diarrhea, constipation, melena, hematochezia : No dysuria, hematuria, increased urinary frequency, decreased urinary output MSK: No myalgia, back pain Neuro: No headaches, weakness, paresthesias Skin: No rashes or lesions [facility] Medical History Hypercholesteremia Hypertension Melanoma Surgical History History of tooth extraction S/P excision of lipoma History of tubal ligation Hx of section History of tonsillectomy Social History Housing Other:: Two family house, daughter lives on first floor Do you presently have visiting nurse or other home services: No Patient Tobacco Use Status: Never used Tobacco Smoked in Last 30 Days: No Patient Interested in Nicotine Replacement: No Patient Given Instructions on How to Stop Smoking: No Second Hand Smoke Exposure: No Use of substances other than those prescribed or required for medical reasons: Yes Substance Use Type: Marijuana Substance Use Frequency: Daily Last Used Substance: Days (ago) Currently Displaying Signs/Symptoms of Drug Intoxication Withdrawal: No Any prior treatment program specific to substance use: No Have you been hit, kicked, punched, or otherwise hurt by someone within the past year? If so, by whom?: No Do you feel safe in your current relationship?: No Current Relationship Is there a partner from a previous relationship who is making you feel unsafe now?: No Are you made to feel afraid or neglected: No Advance Directives: No Advance Directives Information Provided: No (DECLINED) Do you have thoughts of harming others: None Do you have a plan to hurt others: No Plan Recently lost weight without trying: No How much weight loss: Not applicable Eating poorly because of decreased appetite: Yes Nutrition screen score: 1 Nutrition Risks: Poor intake 0-25% >4 days Patient : No : No Poor oral hygiene: No service: No Meds Allergies Allergy/AdvReac Type Severity Reaction Status Date / Time latex [LATEX] Allergy Mild ITCHING Verified 02/27/23 10:54 cats Allergy Unknown Unknown Uncoded 01/29/22 10:39 Active Medications: Current Medications Potassium Chloride/Sodium Chloride (Kcl 40 Meq In 0.9 % Sodium Chl) 40 meq in 1,000 mls @ 150 mls/hr IVCONT .Q6H40M EMILY Last Admin: 02/27/23 12:33 Dose: 150 mls/hr Home Medications Medication Instructions Recorded Confirmed Last Taken Type amlodipine 5 mg tablet 1 tab PO DAILY 01/29/22 02/27/23 02/01/22 History atorvastatin 20 mg tablet 1 tab PO BEDTIME 01/29/22 02/27/23 Unknown History cholecalciferol (vitamin D3) 50 50 mcg PO DAILY 01/29/22 02/27/23 Unknown History mcg (2,000 unit) capsule (Vitamin D3) hydrochlorothiazide 25 mg tablet 1 tab PO DAILY 01/29/22 02/27/23 Unknown History vitamin B complex 1 cap PO DAILY 01/29/22 02/27/23 Unknown History famotidine 20 mg tablet 20 mg PO BID 02/27/23 02/27/23 Unknown History losartan 100 mg tablet 100 mg PO DAILY 02/27/23 02/27/23 Unknown History oxycodone 5 mg tablet 5 mg PO Q4H PRN pain 02/27/23 02/27/23 Unknown History Physical Exam Vital Signs and Narrative: Vital Signs: Last Vital Signs Temp 98.3 F 02/27/23 10:51 Pulse 66 02/27/23 14:01 Resp 16 02/27/23 14:01 BP 168/68 H 02/27/23 14:01 Pulse Ox 97 02/27/23 14:01 O2 Del Method Room Air 02/27/23 14:01 BMI result Body Mass Index 37.2 Constitutional - Awake and Alert, No apparent distress Eyes - PERRLA, EOMI Cardiovascular - S1S2, RRR, No edema Respiratory - Normal lung expansion, Normal respiratory effort, No respiratory distress, CTA bilaterally Gastrointestinal - NT / ND; +BS; No rebound or guarding Extremities - no calf tenderness bilaterally, no swelling Skin - Warm/Dry Neurological - Alert & oriented x3 Psychological - Appropriate affect Results Labs 02/28/23 05:57 02/28/23 05:57 Labs: Laboratory Results - last 24 hr 02/27/23 11:02 MCV 87.0 MCH 30.8 MCHC 35.4 H RDW 12.5 Plt Count 341 D MPV 9.5 Immature Gran % (Auto) 0.5 H Neut % (Auto) 82.2 H Lymph % (Auto) 9.2 L [place] % (Auto) 7.8 Eos % (Auto) 0.1 Baso % (Auto) 0.2 Lymph # (Auto) 1.5 [place] # (Auto) 1.3 H Eos # (Auto) 0.0 Baso # (Auto) 0.0 Abs Immat Gran (auto) 0.08 H Absolute Neuts (auto) 13.5 H Absolute Nucleated RBC 0.000 Nucleated RBC % (auto) 0.0 Anion Gap 22 H Estim Creat Clear Calc 76.6 Estimated GFR > 60 Random Glucose 127 H Calcium 10.8 H D Magnesium 2.3 Total Bilirubin 0.7 AST 22 ALT 18 Alkaline Phosphatase 49 Total Protein 8.1 H Albumin 4.8 Lipase 20 COVID-19 (EMILIANA) Negative COVID-19 Clin Com See Note Influenza Type A (SIVA) Negative Influenza Type B (SIVA) Negative Influenza A & B Note See Note Assessment and Plan (1) Acute hypokalemia: Status: Acute (2) Vomiting: Status: Acute Plan 58-year-old female with history of hypercholesterolemia, hypertension, history of melanoma to be observed for intractable nausea and vomiting. #Intractable nausea and vomiting -Possibly cannabis hyperemesis -no sick contacts her bad food intake -Keep NPO with ice chips and small sips clears for now, advance as tolerated -Continue IVF until tolerating PO -MJ cessation advised -Ondansetron, reglan prn for nausea/vomiting #Acute hypokalemia -2/2 to above -Repleted with 40meq IV in ED -Give 40meq KCl PO now -Follow lytes #Acute leukocytosis -likely reactive 2/2 vomiting -follow cbc #HTN -continue amlodipine, losartan -hold hctz in setting of hypokalemia #HLD -continue statin #s/p cervical spine surgery -?cervical decompression for disc herniation -surgical incision appears well healing without evidence of infection or dehiscence -continue pain management per Neurosurgery ([facility]) DVT prophylaxis- lovenox Full code Time Spent With Patient Time: Total time managing care of this patient today ____ minutes. Quality Stroke Does the patient have a stroke diagnosis?: No VTE Prior VTE?: No VTE Risk Level:: Medical - moderate - high VTE Device Contraindication: Treatment Not Indicated VTE Drug Contraindication: N/A - Med Ordered
--- NOTE | 2023-02-27 15:33 | PHA.MEDREC ---
Pharmacy Consult ? Medication Reconciliation Pharmacy has completed the medication reconciliation. Patient confirmed medications. Johana Montero, CamilleD
--- NOTE | 2023-02-27 16:30 | PC.NURSE ---
report given, transport messaged. pt resting comfortably. belonging list completed. pt medicated per JUL. tolerated PO fluid well.
[2023-02-27 17:11] VITALS: BP 170/75; PULSE 74; RESP 18; TEMP 36.2; O2SAT 95
[2023-02-27 17:26] VITALS: BMI 37.2
[2023-02-27 19:43] VITALS: BP 179/82; PULSE 96; RESP 18; TEMP 36.9; O2SAT 98
[2023-02-27 23:52] VITALS: BP 135/66; PULSE 65; RESP 20; TEMP 36.1; O2SAT 98
[2023-02-28] VITALS (7 sets, daily range): BP systolic 128–193; BP diastolic 54–80; PULSE 61–82; RESP 16–20; TEMP 36.1–37.2; O2SAT 95–97
--- NOTE | 2023-02-28 06:44 | PM.EVENT ---
Event Note Date of Service: 02/28/23 Event Note: low k not able to take PO, IVF_40 meq of KCL at 100/hr Time Spent With Patient Time: Total time managing care of this patient today ____ minutes.
--- NOTE | 2023-02-28 09:25 | MHC.CM.PN ---
[place] 02/28/23, Pt lives in a second floor apt. and her daughter lives on the first floor. Prior to hospitalization, she was independent and did not use home health services. No HCP on file, she states her daughter is HCP, form given and explained. Plan is home self care. CM will follow and assist with dc plan.
--- NOTE | 2023-02-28 14:40 | PC.NURSE ---
per md finish 1L of 40Kcl fluids then start D5 fluid order.
[2023-03-01 03:32] VITALS: BP 162/69; PULSE 67; RESP 18; TEMP 36.3; O2SAT 97
[2023-03-01 07:01] LABS: Anion Gap 14 (12-20); Blood Urea Nitrogen 6 mg/dL (9-16); Calcium 9.2 mg/dL (8.4-10.2); Carbon Dioxide 24 mmol/L (22-29); Chloride 104 mmol/L (96-108); Creatinine Clr Calc Pharmacy 84.6; Estimated Glomerular Filt Rate > 60; Glucose Random 125 mg/dL (60-115); Potassium 2.9 mmol/L (3.3-5.1); Sodium 139 mmol/L (135-145)
[2023-03-01 07:30] VITALS: BP 179/70; PULSE 80; RESP 20; TEMP 36.9; O2SAT 96
[2023-03-01 11:13] VITALS: BP 115/53; PULSE 68; RESP 20; TEMP 36.4; O2SAT 96
--- NOTE | 2023-03-01 14:40 | HO.PM.IMPN ---
Subjective Subjective Date of Service: 02/28/23 Interval History: Late Entry of 02/28 Seen and evaluated this morning reporting nausea and vomiting Review of Systems Review of Systems: Yes all other systems are reviewed and are negative Physical Exam Vital Signs: Vital Signs: Last Vital Signs Temp 97.6 F 03/01/23 11:13 Pulse 68 03/01/23 11:13 Resp 20 03/01/23 11:13 BP 115/53 L 03/01/23 11:13 Pulse Ox 96 03/01/23 11:13 O2 Del Method Room Air 03/01/23 11:13 BMI result Body Mass Index 37.2 Const: Other: Constitutional : Awake, interactive, not in distress Neck : Normal inspection, Supple Cardiovascular : RRR, no JVP, no lower extremity edema Respiratory : good bilateral air entry, no crackles, wheezes or rhonchi Gastrointestinal: soft, lax, Normal bowel sounds, Non tender Skin : Warm, Dry Neurological : Alert & oriented x3, No focal deficit Objective Data Active Medications Amlodipine Besylate (Amlodipine Besylate 5 Mg Tablet) 5 mg PO DAILY [facility]; Protocol Last Admin: 03/01/23 08:19 Dose: 5 mg Documented By: BROOKS Atorvastatin Calcium (Atorvastatin Calcium 20 Mg Tablet) 20 mg PO BEDTIME [facility] Last Admin: 02/28/23 19:59 Dose: 20 mg Documented By: SABA Enoxaparin Sodium (Enoxaparin Sodium 40 Mg/0.4 Ml Syringe) 40 mg SUBCUT Q24H [facility] Last Admin: 02/28/23 14:32 Dose: 40 mg Documented By: STEWART Famotidine (Famotidine 20 Mg Tablet) 20 mg PO BID [facility] Last Admin: 03/01/23 08:19 Dose: 20 mg Documented By: BROOKS Dextrose/Lactated Ringer's (D5lr) 1,000 mls @ 125 mls/hr IVCONT .Q8H [facility] Last Admin: 03/01/23 09:31 Dose: 125 mls/hr Documented By: BROOKS Losartan Potassium (Losartan Potassium 50 Mg Tablet) 100 mg PO DAILY [facility]; Protocol Last Admin: 03/01/23 08:19 Dose: 100 mg Documented By: BROOKS Metoclopramide HCl (Metoclopramide Hcl 5 Mg Tablet) 5 mg PO QIDACHS [facility] Last Admin: 03/01/23 11:33 Dose: 5 mg Documented By: BROOKS Multivitamins/Vitamin C (Multivitamin Tablet) 1 tab PO DAILY [facility] Last Admin: 03/01/23 08:22 Dose: Not Given Documented By: BROOKS Non-Admin Reason: Patient Refused Ondansetron HCl (Ondansetron Hcl 4 Mg/2 Ml Vial) 4 mg IVPUSH Q6H PRN PRN Reason: Nausea Last Admin: 03/01/23 08:20 Dose: 4 mg Documented By: BROOKS Oxycodone HCl (Oxycodone Hcl Immed Release 5 Mg Tablet) 5 mg PO Q4H PRN PRN Reason: Pain, Severe (Pain Scale 7-10) Last Admin: 03/01/23 09:31 Dose: 5 mg Documented By: BROOKS Vitamin D (Cholecalciferol (Vitamin D3) 25 Mcg Tablet) 50 mcg PO DAILY [facility] Last Admin: 03/01/23 08:22 Dose: Not Given Documented By: BROOKS Non-Admin Reason: Patient Refused Labs 02/28/23 05:57 03/01/23 06:06 Labs: Laboratory Results - last 24 hr 03/01/23 06:06 Hold Purple Top SEE NOTE Anion Gap 14 Estim Creat Clear Calc 84.6 Estimated GFR > 60 Random Glucose 125 H Calcium 9.2 Assessment and Plan (1) Acute hypokalemia: Status: Acute (2) Vomiting: Status: Acute (3) Intractable nausea and vomiting: Status: Acute (4) Cyclic vomiting syndrome: Status: Acute Plan 58-year-old female with history of hypercholesterolemia, hypertension, history of melanoma to be observed for intractable nausea and vomiting. #Intractable nausea and vomiting likely [facility] ice chips and small sips clears for now, advance as tolerated IVF until tolerating PO Ondansetron, reglan prn for nausea/vomiting #Acute hypokalemia 2/2 to above 40meq IV Follow lytes #Acute leukocytosis likely reactive 2/2 vomiting #HTN continue amlodipine, losartan hold hctz in setting of hypokalemia #HLD continue statin #s/p cervical spine surgery cervical decompression for disc herniation surgical incision appears well healing without evidence of infection or dehiscence continue pain management per Neurosurgery ([facility]) DVT prophylaxis- lovenox Full code Time Spent With Patient Time: Total time managing care of this patient today ____ minutes. Quality Stroke Does the patient have a stroke diagnosis?: No VTE Prior VTE?: No VTE Risk Level:: Medical - moderate - high VTE Device Contraindication: Treatment Not Indicated VTE Drug Contraindication: N/A - Med Ordered
--- NOTE | 2023-03-01 14:48 | HO.PM.IMPN ---
Subjective Subjective Date of Service: 03/01/23 Interval History: Seen and evaluated this morning improved nausea and vomiting but still unable to tolerate diet on clears now as tolerated Review of Systems Review of Systems: Yes all other systems are reviewed and are negative Physical Exam Vital Signs: Vital Signs: Last Vital Signs Temp 97.6 F 03/01/23 11:13 Pulse 68 03/01/23 11:13 Resp 20 03/01/23 11:13 BP 115/53 L 03/01/23 11:13 Pulse Ox 96 03/01/23 11:13 O2 Del Method Room Air 03/01/23 11:13 BMI result Body Mass Index 37.2 Const: Other: Constitutional : Awake, interactive, not in distress Neck : Normal inspection, Supple Cardiovascular : RRR, no JVP, no lower extremity edema Respiratory : good bilateral air entry, no crackles, wheezes or rhonchi Gastrointestinal: soft, lax, Normal bowel sounds, Non tender Skin : Warm, Dry Neurological : Alert & oriented x3, No focal deficit Objective Data Active Medications Amlodipine Besylate (Amlodipine Besylate 5 Mg Tablet) 5 mg PO DAILY [facility]; Protocol Last Admin: 03/01/23 08:19 Dose: 5 mg Documented By: BROOKS Atorvastatin Calcium (Atorvastatin Calcium 20 Mg Tablet) 20 mg PO BEDTIME [facility] Last Admin: 02/28/23 19:59 Dose: 20 mg Documented By: SABA Enoxaparin Sodium (Enoxaparin Sodium 40 Mg/0.4 Ml Syringe) 40 mg SUBCUT Q24H [facility] Last Admin: 02/28/23 14:32 Dose: 40 mg Documented By: STEWART Famotidine (Famotidine 20 Mg Tablet) 20 mg PO BID [facility] Last Admin: 03/01/23 08:19 Dose: 20 mg Documented By: BROOKS Dextrose/Lactated Ringer's (D5lr) 1,000 mls @ 125 mls/hr IVCONT .Q8H [facility] Last Admin: 03/01/23 09:31 Dose: 125 mls/hr Documented By: BROOKS Losartan Potassium (Losartan Potassium 50 Mg Tablet) 100 mg PO DAILY [facility]; Protocol Last Admin: 03/01/23 08:19 Dose: 100 mg Documented By: BROOKS Metoclopramide HCl (Metoclopramide Hcl 5 Mg Tablet) 5 mg PO QIDACHS [facility] Last Admin: 03/01/23 11:33 Dose: 5 mg Documented By: BROOKS Multivitamins/Vitamin C (Multivitamin Tablet) 1 tab PO DAILY [facility] Last Admin: 03/01/23 08:22 Dose: Not Given Documented By: BROOKS Non-Admin Reason: Patient Refused Ondansetron HCl (Ondansetron Hcl 4 Mg/2 Ml Vial) 4 mg IVPUSH Q6H PRN PRN Reason: Nausea Last Admin: 03/01/23 08:20 Dose: 4 mg Documented By: BROOKS Oxycodone HCl (Oxycodone Hcl Immed Release 5 Mg Tablet) 5 mg PO Q4H PRN PRN Reason: Pain, Severe (Pain Scale 7-10) Last Admin: 03/01/23 09:31 Dose: 5 mg Documented By: BROOKS Vitamin D (Cholecalciferol (Vitamin D3) 25 Mcg Tablet) 50 mcg PO DAILY [facility] Last Admin: 03/01/23 08:22 Dose: Not Given Documented By: BROOKS Non-Admin Reason: Patient Refused Labs 02/28/23 05:57 03/01/23 06:06 Labs: Laboratory Results - last 24 hr 03/01/23 06:06 Hold Purple Top SEE NOTE Anion Gap 14 Estim Creat Clear Calc 84.6 Estimated GFR > 60 Random Glucose 125 H Calcium 9.2 Assessment and Plan (1) Cyclic vomiting syndrome: Status: Acute (2) Intractable nausea and vomiting: Status: Acute (3) Acute hypokalemia: Status: Acute Plan 58-year-old female with history of hypercholesterolemia, hypertension, history of melanoma to be observed for intractable nausea and vomiting. #Intractable nausea and vomiting likely 2/2 CVS D5LR IV for now Advance diet Reglan ATC PRN Zofran #Acute hypokalemia to give extra potassium PO Follow lytes #Acute leukocytosis likely reactive 2/2 vomiting #HTN continue amlodipine, losartan hold hctz in setting of hypokalemia #HLD continue statin #s/p cervical spine surgery cervical decompression for disc herniation surgical incision appears well healing without evidence of infection or dehiscence continue pain management per Neurosurgery ([facility]) DVT prophylaxis- lovenox The patient will need overnight inpatient hospital stay given inability to tolerate PO pending clinical improvement. Time Spent With Patient Time: Total time managing care of this patient today ____ minutes. Quality Stroke Does the patient have a stroke diagnosis?: No VTE Prior VTE?: No VTE Risk Level:: Medical - moderate - high VTE Device Contraindication: Treatment Not Indicated VTE Drug Contraindication: N/A - Med Ordered
[2023-03-01 15:17] VITALS: BP 124/54; PULSE 84; RESP 18; TEMP 37.1; O2SAT 98
[2023-03-01 19:10] VITALS: BP 157/61; PULSE 85; RESP 18; TEMP 37.1; O2SAT 98
[2023-03-01 23:41] VITALS: BP 121/68; PULSE 66; RESP 18; TEMP 36.2; O2SAT 96
[2023-03-02] VITALS (7 sets, daily range): BP systolic 139–186; BP diastolic 60–83; PULSE 62–79; RESP 16–20; TEMP 36.2–37.1; O2SAT 97–98
--- NOTE | 2023-03-02 15:22 | HO.PM.IMPN ---
Subjective Subjective Date of Service: 03/02/23 Interval History: Seen and evaluated this morning was doing ok then start having nausea again and became unable to tolerate diet Low potassium Review of Systems Review of Systems: Yes all other systems are reviewed and are negative Physical Exam Vital Signs: Vital Signs: Last Vital Signs Temp 98.7 F 03/02/23 11:26 Pulse 68 03/02/23 12:03 Resp 20 03/02/23 11:26 BP 175/79 H 03/02/23 12:03 Pulse Ox 98 03/02/23 11:26 O2 Del Method Room Air 03/02/23 11:26 BMI result Body Mass Index 37.2 Const: Other: Constitutional : Awake, interactive, not in distress Neck : Normal inspection, Supple Cardiovascular : RRR, no JVP, no lower extremity edema Respiratory : good bilateral air entry, no crackles, wheezes or rhonchi Gastrointestinal: soft, lax, Normal bowel sounds, Non tender Skin : Warm, Dry Neurological : Alert & oriented x3, No focal deficit Objective Data Active Medications Amlodipine Besylate (Amlodipine Besylate 5 Mg Tablet) 5 mg PO DAILY [facility]; Protocol Last Admin: 03/02/23 08:23 Dose: 5 mg Documented By: BROOKS Atorvastatin Calcium (Atorvastatin Calcium 20 Mg Tablet) 20 mg PO BEDTIME [facility] Last Admin: 03/01/23 20:26 Dose: 20 mg Documented By: LIZA Enoxaparin Sodium (Enoxaparin Sodium 40 Mg/0.4 Ml Syringe) 40 mg SUBCUT Q24H [facility] Last Admin: 03/01/23 16:22 Dose: 40 mg Documented By: BROOKS Famotidine (Famotidine 20 Mg Tablet) 20 mg PO BID [facility] Last Admin: 03/02/23 08:24 Dose: 20 mg Documented By: BROOKS Dextrose/Lactated Ringer's (D5lr) 1,000 mls @ 125 mls/hr IVCONT .Q8H [facility] Losartan Potassium (Losartan Potassium 50 Mg Tablet) 100 mg PO DAILY [facility]; Protocol Last Admin: 03/02/23 08:23 Dose: 100 mg Documented By: BROOKS Magnesium Oxide (Magnesium Oxide 400 Mg Tablet) 800 mg PO DAILY [facility] Last Admin: 03/02/23 08:23 Dose: 800 mg Documented By: BROOKS Metoclopramide HCl (Metoclopramide Hcl 5 Mg Tablet) 5 mg PO QIDACHS [facility] Last Admin: 03/02/23 12:01 Dose: 5 mg Documented By: BROOKS Multivitamins/Vitamin C (Multivitamin Tablet) 1 tab PO DAILY [facility] Last Admin: 03/02/23 08:23 Dose: 1 tab Documented By: BROOKS Ondansetron HCl (Ondansetron Hcl 4 Mg/2 Ml Vial) 4 mg IVPUSH Q6H PRN PRN Reason: Nausea Last Admin: 03/02/23 08:24 Dose: 4 mg Documented By: BROOKS Oxycodone HCl (Oxycodone Hcl Immed Release 5 Mg Tablet) 5 mg PO Q4H PRN PRN Reason: Pain, Severe (Pain Scale 7-10) Last Admin: 03/02/23 09:57 Dose: 5 mg Documented By: BROOKS Vitamin D (Cholecalciferol (Vitamin D3) 25 Mcg Tablet) 50 mcg PO DAILY [facility] Last Admin: 03/02/23 08:23 Dose: 50 mcg Documented By: BROOKS Labs 02/28/23 05:57 03/02/23 12:58 Labs: Laboratory Results - last 24 hr 03/02/23 03/02/23 05:54 12:58 Hold Purple Top SEE NOTE Anion Gap 14 17 Estim Creat Clear Calc 81.0 81.0 Estimated GFR > 60 > 60 Random Glucose 141 H 120 H Calcium 8.9 10.0 D Magnesium 1.8 Assessment and Plan (1) Cyclic vomiting syndrome: Status: Acute (2) Intractable nausea and vomiting: Status: Acute (3) Acute hypokalemia: Status: Acute Plan 58-year-old female with history of hypercholesterolemia, hypertension, history of melanoma to be observed for intractable nausea and vomiting. #Intractable nausea and vomiting likely 2/2 [facility] restart D5LR IV Advance diet as tolerated Reglan ATC PRN Zofran #Acute hypokalemia potassium PO and IV Follow lytes #Acute leukocytosis likely reactive 2/2 vomiting #HTN continue amlodipine, losartan hold hctz in setting of hypokalemia #HLD continue statin #s/p cervical spine surgery cervical decompression for disc herniation surgical incision appears well healing without evidence of infection or dehiscence continue pain management per Neurosurgery ([facility]) DVT prophylaxis- lovenox The patient will need overnight inpatient hospital stay given inability to tolerate PO pending clinical improvement. Time Spent With Patient Time: Total time managing care of this patient today ____ minutes. Quality Stroke Does the patient have a stroke diagnosis?: No VTE Prior VTE?: No VTE Risk Level:: Medical - moderate - high VTE Device Contraindication: Treatment Not Indicated VTE Drug Contraindication: N/A - Med Ordered
[2023-03-03 06:43] VITALS: BP 118/58; PULSE 64; RESP 18; TEMP 36.6; O2SAT 96
[2023-03-03 07:22] VITALS: BP 125/62; PULSE 69; RESP 20; TEMP 36.8; O2SAT 97
--- NOTE | 2023-03-03 10:54 | PM.DS ---
DS: Providers Provider Date of Service: 03/03/23 Date of admission: 03/01/23 14:41 Primary care physician: Diogenes Woodruff MD DS: Diagnosis Discharge Diagnosis (1) Cyclic vomiting syndrome: Status: Acute (2) Intractable nausea and vomiting: Status: Acute (3) Acute hypokalemia: Status: Acute DS: Summary Hospital Course Hospital Course: Admission note HPI 58-year-old female with history of hypercholesterolemia, hypertension, history of melanoma presented to the ED for evaluation of nausea and vomiting ongoing for about 4 days. Reports she had cervical spine surgery (anterior) last week on 02/19 and had been recovering well taking tylenol with codeine intermittently for pain (had taken codeine in the past without issue). Four days ago, took off the surgical bandaid and felt nauseated and vomited after looking at her neck. There is no erythema or purulent drainage or bleeding. Since then has has near constant nausea and vomiting. She reports she had been constipated following surgery but took laxatives and was able to move her bowels 4 days ago and denies constipation since. Has not been able to tolerate PO including fluids. Denies any hemetemesis. She does smoke marijuana regularly but no other substance use. No cigarettes or etoh. No fevers, chills, upper respiratory symptoms, abdominal pain, diarrhea, melena, hematochezia, lightheadedness, headache, shortness of breath, chest pain. On arrival, patient hypertensive to 176/68, vital signs otherwise within normal limits. She has a leukocytosis of 16.5. Renal function normal. Potassium 2.5, calcium 10.8, electrolytes otherwise within normal limits. Negative for COVID-19 influenza. EKG shows NSR, rate 74 with T wave inversions noted in III, AvF, V1, V4. In ED, given 40meq IV KCl, ondansetron, Benadryl, and Reglan. Hospital course #Intractable nausea and vomiting Likely a result of cyclic vomiting syndrome from cannabis usage. Responded well to treatment with IV fluids, Reglan and advancing diet slowly over the course of hospital stay as nausea resolved and she was able to tolerate diet. Advised complete absitance from Cannabis products. #Acute hypokalemia responded well to repalcement with potassium PO and IV. Avoid cannabis products Zofran as needed for nausea Advance your diet as tolerated at home Time Spent with Patient Time attestation: Total time managing care of this patient today ____ minutes. Discharge coordination time: Greater than 30 minutes Quality: Safe Use of Opioids Does Pt have an Active Cancer Diagnosis on the Problem List?: No Quality: Stroke Does the patient have a stroke diagnosis?: No Physical Exam Vital Signs: Vital Signs: Last Vital Signs Temp 98.3 F 03/03/23 07:22 Pulse 69 03/03/23 07:22 Resp 20 03/03/23 07:22 BP 125/62 03/03/23 07:22 Pulse Ox 97 03/03/23 07:22 O2 Del Method Room Air 03/03/23 07:22 BMI result Body Mass Index 37.2 Const: Other: Constitutional : Awake, interactive, not in distress Neck : Normal inspection, Supple Cardiovascular : RRR, no JVP, no lower extremity edema Respiratory : good bilateral air entry, no crackles, wheezes or rhonchi Gastrointestinal: soft, lax, Normal bowel sounds, Non tender Skin : Warm, Dry Neurological : Alert & oriented x3, No focal deficit DS: Data Data Completed and Pending Labs on day of discharge: Laboratory Results - last 24 hr 03/02/23 12:58 Sodium 138 Potassium 4.1 D Chloride 102 Carbon Dioxide 23 Anion Gap 17 BUN 5 L Creatinine 0.70 Estim Creat Clear Calc 81.0 Estimated GFR > 60 Random Glucose 120 H Calcium 10.0 D Discharge Plan Discharge Anticipated Discharge Date/Time: 03/03/23 10:34 Patient Disposition: Home, Self-Care Discharge Diagnosis: Cyclic vomiting Referrals: Diogenes Woodruff MD [Primary Care Provider] - 1 Week Discharge Medications: New magnesium oxide 400 mg (241.3 mg magnesium) Tablet 400 mg PO DAILY Qty: 90 0RF ondansetron 4 mg tablet,disintegrating 4 mg PO Q6H PRN (Reason: nausea and vomiting) Qty: 20 0RF Continued atorvastatin 20 mg tablet 1 tab PO BEDTIME amlodipine 5 mg tablet 1 tab PO DAILY hydrochlorothiazide 25 mg tablet 1 tab PO DAILY vitamin B complex Capsule 1 cap PO DAILY cholecalciferol (vitamin D3) [Vitamin D3] 50 mcg (2,000 unit) Capsule 50 mcg PO DAILY famotidine 20 mg tablet 20 mg PO BID losartan 100 mg tablet 100 mg PO DAILY oxycodone 5 mg tablet 5 mg PO Q4H PRN (Reason: pain) Discharge Orders: Discharge Order (Routine); Ordered 03/03/23 Ordered By: Areli Gaona Diet: Advance to usual diet Activity on Discharge: As tolerated Stand Alone Forms: Patient Portal Discharge page Care Plan Goals: Read below Health Concerns: Read below Plan of Treatment: Read below Assessment: Avoid cannabis products Zofran as needed for nausea Advance your diet as tolerated at home
--- NOTE | 2023-03-03 10:58 | MHC.CM.PN ---
Patient has been medically cleared for dc to home today, self care.
[2023-03-03 11:39] VITALS: BP 151/77; PULSE 72; RESP 20; TEMP 36.6; O2SAT 98
== END 2023-03-03 12:12 | disposition home or self-care (01) | DRG 425 ==
LOC: HO.ED 14:49 → HO.EDOVER 15:07 → HO.IMC 15:48
PROVIDERS: Registered Nurse Emergency; Admitting Provider Physician Assistant; Emergency Provider Emergency Medicine; PCP Internal Medicine; Visit Provider Student in an Organized Health Care Education/Training Program
DX: E87.6 Hypokalemia (principal); E78.5 Hyperlipidemia, unspecified; I10 Essential (primary) hypertension; R11.2 Nausea with vomiting, unspecified; F12.90 Cannabis use, unspecified, uncomplicated; Z20.822 Contact with and (suspected) exposure to COVID-19; Z91.040 Latex allergy status; Z91.148 Patient's other noncompliance with medication regimen for other reason; Z79.899 Other long term (current) drug therapy
CPT/HCPCS: 36415; 80048; 80053; 83690; 83735; 85025; 87502; 87635; 93005; 99222; 99285; J1200; J1650; J2060; J2405; J2765

== ENCOUNTER → 2023-02-27 14:57 | Outpatient (BNV) | payer MEDICAID, SELFPAY | PROVIDERS: Admitting Provider Physician Assistant; Emergency Provider Emergency Medicine; PCP Internal Medicine; Visit Provider Internal Medicine | DX: R11.15 Cyclical vomiting syndrome unrelated to migraine (principal); R11.2 Nausea with vomiting, unspecified; E87.6 Hypokalemia | CPT/HCPCS: 99223; 99232; 99239; 99499 ==

== ENCOUNTER 2023-03-10 15:03 | Outpatient (REF) | payer MEDICAID, SELFPAY ==
[2023-03-10 15:26] LABS: MANUAL DIFF FLAG NO
[2023-03-10 15:36] LABS: Basophils Percent Auto 0.5 % (0-2); Eosinophils Absolute Auto 0.1 X10*3/uL (0.0-0.4); Eosinophils Percent Auto 0.9 % (0-4); Hematocrit 37.4 % (37.0-47.0); Hemoglobin 12.9 g/dl (12.0-16.0); Imm Gran Abs Auto 0.02 X10*3/uL (0.00-0.03); Imm Gran Pct Auto 0.2 % (0.0-0.4); Lymphocytes Absolute Auto 2.2 X10*3/uL (1.2-4.9); Lymphocytes Percent Auto 27.3 % (20-40); Mean Corpuscular HGB Conc 34.5 g/dl (31.0-35.0); Mean Corpuscular Hemoglobin 31.2 pg (27.0-33.0); Mean Corpuscular Volume 90.3 fL (80.0-98.0); Mean Platelet Volume 9.6 fL (9.4-12.3); Monocytes Absolute Auto 0.5 X10*3/uL (0.1-1.2); Monocytes Percent Auto 5.9 % (2-11); Neutrophils Absolute Auto 5.3 x10*3/uL (2.0-8.3); Neutrophils Percent Auto 65.2 % (45-73); Platelet Count 299 X10*3/uL (160-400); Red Blood Count 4.14 X10*6/uL (4.20-5.50); Red Cell Distribution Width 12.1 % (11.0-16.0); White Blood Count 8.1 X10*3/uL (4.8-10.8)
[2023-03-10 15:52] LABS: Estimated Average Glucose 94 mg/dL; Hemoglobin A1c % 4.9 % (<6.0)
[2023-03-10 17:17] LABS: Alanine Aminotransferase 21 U/L (0-31); Albumin Level 4.2 g/dL (3.5-5.0); Alkaline Phosphatase 47 U/L (39-117); Anion Gap 15 (12-20); Aspartate Amino Transferase 17 U/L (5-31); Bilirubin Total 0.4 mg/dL (0.0-1.0); Blood Urea Nitrogen 5 mg/dL (9-16); Calcium 10.2 mg/dL (8.4-10.2); Carbon Dioxide 25 mmol/L (22-29); Chloride 102 mmol/L (96-108); Estimated Glomerular Filt Rate > 60; Glucose Random 124 mg/dL (60-115); Magnesium 2.1 mg/dL (1.6-2.6); Potassium 3.2 mmol/L (3.3-5.1); Sodium 139 mmol/L (135-145)
[2023-03-10 17:24] LABS: Thyroid Stimulating Hormone 1.22 uIU/mL (0.32-4.0)
== END 2023-03-10 15:04 | disposition home or self-care (01) ==
LOC: HO.LAB 15:03
PROVIDERS: PCP Internal Medicine; Visit Provider Internal Medicine
DX: I10 Essential (primary) hypertension (principal); K21.9 Gastro-esophageal reflux disease without esophagitis; R73.03 Prediabetes; R11.15 Cyclical vomiting syndrome unrelated to migraine
CPT/HCPCS: 36415; 80053; 83036; 83735; 84443; 85025

== ENCOUNTER 2023-04-15 14:27 | Outpatient (REF) | payer MEDICAID, SELFPAY ==
[2023-04-15 15:45] LABS: Anion Gap 12 (12-20); Blood Urea Nitrogen 9 mg/dL (9-16); Carbon Dioxide 31 mmol/L (22-29); Chloride 101 mmol/L (96-108); Estimated Glomerular Filt Rate > 60; Glucose Random 106 mg/dL (60-115); Magnesium 2.3 mg/dL (1.6-2.6); Potassium 3.5 mmol/L (3.3-5.1); Sodium 140 mmol/L (135-145)
== END 2023-04-15 14:28 | disposition home or self-care (01) ==
LOC: HO.LAB 14:27
PROVIDERS: PCP Internal Medicine; Visit Provider Internal Medicine
DX: K21.9 Gastro-esophageal reflux disease without esophagitis (principal); I10 Essential (primary) hypertension; E87.6 Hypokalemia
CPT/HCPCS: 36415; 80048; 83735

== ENCOUNTER 2024-04-30 10:50 | Outpatient (REF) | payer MEDICAID, SELFPAY ==
--- NOTE | ~2024-04-30 | MM_ITS ---
EXAMINATION: BONE DENSITOMETRY CLINICAL INDICATION: Menopausal state. COMPARISON: Baseline BD dated 03/14/2021. TECHNIQUE: Using a [employer] DXA System (software version: 13.1) manufactured by [employer], dual-energy x-ray absorptiometry was performed of the lumbar spine and left hip. The images are of good technical quality. Summary results are attached. FINDINGS: LEFT FEMUR, NECK: Current: BMD 0.855 g/cm2, Z-score -0.5, T-score -1.3, osteopenia. Baseline: BMD 0.843 g/cm2. LEFT FEMUR, TOTAL: Current: BMD 1.077 g/cm2, Z-score 1.1, T-score 0.5, normal, 5.4% increase from baseline (<5% change is not significant). Baseline: BMD 1.022 g/cm2. AP SPINE L1-L4: Current: BMD 1.246 g/cm2, Z-score 1.2, T-score 0.5, normal, 4.1% increase from baseline (<5% change is not significant). Baseline: BMD 1.197 g/cm2. IDENTIFIED RISK FACTORS: Early menopause, secondary osteoporosis, thiazide. HISTORY OF FRACTURE: None listed. MEDICATIONS: Vitamin D. MM/XR DEXA axial skeleton IMPRESSION: 1. DIAGNOSIS: Osteopenia based on the lowest T-score value of -1.3 in the femoral neck applying World Health Organization criteria. 2. 10-YEAR FRACTURE RISK PREDICTION, FRAX: Major osteoporotic fracture (clinical spine, forearm, hip or shoulder) 7.0%. Hip fracture 0.5%. 3. Treatment Recommendations: NOF guidelines recommend consideration for treatment in postmenopausal women and men age 50 and older presenting with the following: -A hip or vertebral (clinical or morphometric) fracture. -T-score less than or equal to -2.5 at the femoral neck or spine after appropriate evaluation to exclude secondary causes. -Low bone mass at the hip or spine and a 10-year fracture probability by FRAX of greater than or equal to 3% for hip fracture or greater than or equal to 20% for major osteoporotic fracture based on the [place] adapted WHO algorithm. 4. Other Recommendations: All treatment decisions require clinical judgment and consideration of individual patient factors, including patient preferences, comorbidities, previous drug use, risk factors not captured in the FRAX model (e.g. frailty, falls, vitamin D deficiency, increased bone turnover, interval significant decline in bone density) and possible under or overestimation of fracture risk by FRAX. Additional medical evaluation for secondary cause of low bone mineral density may be appropriate. FUTURE SCAN RECOMMENDATION: People with diagnosed cases of osteoporosis or at high risk for fracture should have regular bone mineral density tests. For patients eligible for Medicare, routine testing is allowed once every 2 years. The testing frequency can be increased to one year for patients who have rapidly progressing disease, those who are receiving or discontinuing medical therapy to restore bone mass, or have additional risk factors. Electronically signed by: Monster Ontiveros MD 04/30/2024 03:21 PM [facility]
--- NOTE | ~2024-04-30 | MM_ITS ---
EXAMINATION: MM SCREENING DIGITAL BREAST TOMOSYNTHESIS, BILATERAL CLINICAL INFORMATION: Screening. Asymptomatic. COMPARISON: Mammography: Comparison is made with available priors TECHNIQUE: Digital breast mammography with tomosynthesis is performed in both the craniocaudal and mediolateral oblique views along with computer-aided detection (CAD). FINDINGS: There are scattered areas of fibroglandular density (ACR BI-RADS breast composition Category b). There are no significant masses, abnormal calcifications, or other abnormalities. MM/MM tomosynthesis screening BI IMPRESSION: No mammographic evidence of malignancy. ASSESSMENT: BI-RADS BI-RADS 1 - Negative RECOMMENDATION: Routine annual mammography screening. 1 year F/U This examination should not preclude the clinical evaluation of a suspicious palpable abnormality. This patient's information was entered into a reminder system with a target due date for their next mammogram. Electronically signed by: Linda Childers DO 05/06/2024 12:17 PM [facility]
== END 2024-04-30 10:51 | disposition home or self-care (01) ==
LOC: HO.MAMMO 10:50
PROVIDERS: PCP Internal Medicine; Visit Provider Internal Medicine
DX: Z12.31 Encounter for screening mammogram for malignant neoplasm of breast (principal); Z13.820 Encounter for screening for osteoporosis; Z78.0 Asymptomatic menopausal state
CPT/HCPCS: 77063; 77067; 77080

== ENCOUNTER → 2024-04-30 11:15 | Outpatient (BNV) | payer MEDICAID, SELFPAY | PROVIDERS: PCP Internal Medicine; Visit Provider Internal Medicine | DX: Z12.31 Encounter for screening mammogram for malignant neoplasm of breast (principal) | CPT/HCPCS: 77063; 77067 ==

== ENCOUNTER 2024-11-11 08:06 | Outpatient (AMB) | payer OTHER, SELFPAY ==
--- OUTSIDE RECORDS SUMMARY | 2024-11-11 08:12 | XMS_ITS | Clinical Summary ---
Author Organization [facility] ity Address [address] [place] [address] Care Team Providers Care Watch Dial Stoner Name Role Phone Diogenes Woodruff MD Primary Care Provider [phone] Social History Tobacco Use Types Packs/Day Years Used Date Smoking Tobacco: Never Assessed Comments Unknown Sex and Gender Information Value Date Recorded Sex Assigned at Not on file Legal Sex Female 10:49 PM EST Gender Identity Not on file Sexual Orientation Not on file Plan of Treatment Health Maintenance Due Date Last Done Comments Breast Cancer Screening 1965 DTaP,Tdap,and Td Vaccines (1 - Tdap) 02/11/1983 Cervical Cancer Screening: P ap Smear 02/11/1985 Pneumococcal Vaccine: 50+ Ye ars (1 of 1 - PCV) 02/11/2014 Zoster Vaccines (1 of 2) 02/11/2014 COVID-19 Vaccine ( - 2023-2 5 season) 2024 Influenza Vaccine (Season Ended) 2025 RSV Immunization Adult Patie nts (1 - 1-dose 75+ series) 02/11/2039 HIB Vaccines Aged Out No longer eligi ble based on patient's age to complete this topic HPV Vaccines Aged Out No longer eligi ble based on patient's age to complete this topic Hepatitis A Vaccines Aged Out No long er eligible based on patient's age to complete this topic Hepatitis B Vaccines Aged Out No long er eligible based on patient's age to complete this topic IPV Vaccines Aged Out No longer eligi ble based on patient's age to complete this topic MMR Vaccines Aged Out No longer eligi ble based on patient's age to complete this topic Meningococcal ACWY Vaccine Aged Out N o longer eligible based on patient's age to complete this topic Meningococcal B Vaccine Aged Out No l onger eligible based on patient's age to complete this topic Pneumococcal Vaccine: Pediat rics (0 to 5 Years) and At-Risk Patients (6 to 64 Years) Aged Out No longer eligible b ased on patient's age to complete this topic RSV Immunization Patients Un hoang 20 months Aged Out No longer eligible b ased on patient's age to complete this topic Varicella Vaccines Aged Out No longer eligible based on patient's age to complete this topic Care Teams Watch Dial Stoner Relationship Specialty Start Date End Date Diogenes Woodruff MD [address] [place] [address] Dr Love DC PCP - General Internal Medicine 01/01/21
--- NOTE | 2024-11-11 08:20 | MHC.OFFWIV ---
Intake Vital Signs 11/11/24 08:21 Height 4 ft 10 in Weight 181 lb BMI 37.8 BP 164/92 H Blood Pressure Location Lt brachial Position Sitting Pulse 71 Pulse Source Pulse Oximeter Temp 98.1 F Temp Source Oral Pulse Oximetry (%) 98 Oxygen Delivery Method Room Air Intake Visit Reasons: EP mouth pain Intake Note: Patient present with mouth pain times 2-3 days. Broken tooth Patient Tobacco Use Status: Never used Tobacco Allergies latex (LATEX) Allergy (Mild, Verified 11/11/24 08:25) ITCHING cats Allergy (Unknown, Uncoded 01/29/22 10:39) Unknown Do you need a note to return to daycare/school/sports/work: No HPI HPI Comments History of Present Illness Details History - The patient is a 59-year-old female presenting with toothache due to broken tooth. - The patient reports a toothache following the loss of a filling and subsequent tooth fracture. - She has dentures on the top and a flipper on the bottom, which exacerbates the discomfort by hitting the affected area. - The patient has attempted self-care measures including flossing, gargling with hot water and baking soda, and taking Aleve, but the pain persists. - Gingival swelling is noted. - The patient is seeking antibiotics as a prerequisite for dental intervention, as advised by her dentist. - She has recently experienced a change in health insurance from [employer] to [employer], complicating her access to dental care. - The patient is scheduled to see her primary care provider, Monet Israel, for further management of her medications. - She denies fever, chills, CP, SOB, abd pain, n/v/d, facial pain, facial swelling, or jaw pain. Physical Exam General: Cooperative, healthy appearing, comfortable, no acute distress and well developed Head: Normal to inspection Mouth: Swollen gums noted on the right lower, no fluctuance noted. Broken #28 on the right lower. Tongue is midline. Oropharynx is normal, no exudates noted. Neck: Normal visual inspection and Yes full ROM. No lymphadenopathy noted. Respiratory: Normal respiratory effort and able to speak in complete sentences. Patient was informed and verbally consented to the use of an ambient scribe for clinic note documentation during this visit [facility] Medical History (Updated 03/11/23 @ 00:02 by Background Daemon) Hypercholesteremia Hypertension Melanoma Surgical History (Updated 09/22/24 @ 17:03 by Meli Ronquillo) History of colonoscopy (~02/02/22) History of tooth extraction S/P excision of lipoma History of tubal ligation Hx of section History of tonsillectomy Social History Housing Other:: Two family house, daughter lives on first floor Do you presently have visiting nurse or other home services: No Patient Tobacco Use Status: Never used Tobacco Second Hand Smoke Exposure: No Substance Use Type: Marijuana service: No Review of Systems Const All systems reviewed & are unremarkable except as noted in HPI and below Physical Exam Vital Signs: Last Vital Signs Temp 98.1 F 11/11/24 08:21 Pulse 71 11/11/24 08:21 BP 164/92 H 11/11/24 08:21 Pulse Ox 98 11/11/24 08:21 Oxygen Delivery Method Room Air 11/11/24 08:21 BMI result Body Mass Index 37.8 Assessment & Plan Assessment & Plan (1) Pain, dental: Code(s): K08.89 - Other specified disorders of teeth and supporting structures Plan Most likely dental abscess vs dental fracture 1. Dental Caries With Broken Tooth - Tylenol or Motrin as needed for pain or fever. - Diet as tolerated. - The patient requires antibiotics as a prerequisite for dental intervention. - A referral to a dentist is necessary for further evaluation and treatment. - The patient has been advised to continue with self-care measures until dental evaluation is possible. Medications: New amoxicillin-pot clavulanate 875-125 mg 1 tab PO Q12H 20 tabs 0RF 10 days Discontinued magnesium oxide Discontinued Reason: Patient no longer taking 400 mg PO DAILY 90 tabs 0RF ondansetron Discontinued Reason: Patient no longer taking 4 mg PO Q6H PRN 20 tabs 0RF nausea and vomiting Coding Level of Care Code Est Pt Level 3 (10797) Diagnoses Pain, dental K08.89
[2024-11-11 08:21] VITALS: BP 164/92; PULSE 71; TEMP 36.7; O2SAT 98; BMI 37.8
== END 2024-11-11 09:00 | disposition home or self-care (01) ==
PROVIDERS: PCP Internal Medicine; Visit Provider Physician Assistant Medical
DX: K08.89 Other specified disorders of teeth and supporting structures (principal)

== ENCOUNTER → 2024-11-11 08:06 | Outpatient (BNVA) | payer OTHER, SELFPAY | PROVIDERS: PCP Internal Medicine; Visit Provider Physician Assistant Medical | DX: K08.89 Other specified disorders of teeth and supporting structures (principal) | CPT/HCPCS: 99212 ==

== ENCOUNTER 2024-11-12 13:10 | Outpatient (AMB) | payer MEDICAID, SELFPAY ==
[2024-11-12 10:57] VITALS: BP 148/80; PULSE 79; TEMP 36.5; O2SAT 98; BMI 37.6
--- NOTE | 2024-11-12 10:57 | A.OFFPC_ITS ---
Vital Signs 11/12/24 10:57 Height 4 ft 10 in Weight 180 lb BMI 37.6 BP 148/80 H Blood Pressure Location Lt brachial Position Sitting Pulse 79 Pulse Source Pulse Oximeter Temp 97.7 F Temp Source Axillary Pulse Oximetry (%) 98 Oxygen Delivery Method Room Air Intake Visit Reasons: Routine - see comments Clinical Trials Assistant Required: No Accompanied by: Self / Same As Patient Allergies latex (LATEX) Allergy (Mild, Verified 11/12/24 13:21) ITCHING cats Allergy (Unknown, Uncoded 01/29/22 10:39) Unknown Tobacco use date assessed: 11/12/24 Dental Screening Dental Screen Date: 11/12/24 Did you have a dental visit in the last 12 months?: No Did you have a dental problem in the last 6 months where you did not have access to dental care?: No HPI HPI Comments History of Present Illness Details The patient is a 59 year old female with a past medical history of hypertension, hyperlipidemia, GERd presenting for follow up. CV: on hctz, amlodipine, atorvastatin. BP 148/80. She is supposed to be on losartan 100mg daily ran out of refills Tooth pain-seen in walk in yesterday. Will make dentist appt this week. on augmentin. asking for short supply pain med MSK: severe cervical ddd. stable Mammo 05/18 DXA 05/18 Colon 02/01/22 ROS see HPI PHYSICAL EXAM: GENERAL: Alert and oriented x 3. NAD EYES: EOMI. Anicteric. HENT: Moist mucous membranes. No scleral icterus. No cervical lymphadenopathy. LUNGS: Clear to auscultation bilaterally. CARDIOVASCULAR: Regular rate and rhythm. No murmur. No JVD. ABDOMEN: Soft, non-tender +bs EXTREMITIES: No edema. Non-tender. SKIN: No rashes or lesions. Warm. NEUROLOGIC: No focal neurological deficits. CN II-XII grossly intact PSYCHIATRIC: Cooperative. Appropriate mood and affect [facility] Medical History Hypercholesteremia Hypertension Melanoma Surgical History History of colonoscopy (~02/02/22) History of tooth extraction S/P excision of lipoma History of tubal ligation Hx of section History of tonsillectomy Family History Mother No problems noted. Father No problems noted. Social History Housing: House Housing Other:: Two family house, daughter lives on first floor Do you presently have visiting nurse or other home services: No Patient Tobacco Use Status: Never used Tobacco e-Cigarette/Vaping Use: Never Used Second Hand Smoke Exposure: No Substance Use Type: Marijuana service: No Current occupational status: other Cognitive needs: No Hearing needs: No Vision needs: Yes (rx glasses) Questionnaire PHQ-9 Over the last 2 weeks, how often have you been bothered by any of the following problems? 1. Little interest or pleasure in doing things: not at all 2. Feeling down, depressed, or hopeless: several days 3. Trouble falling or staying asleep, or sleeping too much: nearly every day 4. Feeling tired or having little energy: nearly every day 5. Poor appetite or overeating: nearly every day 6. Feeling bad about yourself - or that you are a failure or have let yourself or your family down: not at all 7. Trouble concentrating on things, such as reading the newspaper or watching television: not at all 8. Moving or speaking so slowly that other people could have noticed. Or the opposite - being so fidgety or restless that you have been moving around a lot more than usual: not at all 9. Thoughts that you would be better off or of hurting yourself in some way: not at all Total score: 10 Depression Screening Interpretation: Positive Depression Screening Follow-up: Declines treatment Depression Screening Done: Yes Source: Developed by Drs. Carlos Sanders, Vee Melendrez, Fredrick Andujar and colleagues, with an educational antonio from [employer]. Thrive Questionnaire Date Thrive assessed: 11/12/24 I am a: Patient Within the past 12 months, did the food you bought not last and you didn't have the money to get more?: Never true Within the past 12 months, did you worry whether your food would run out before you got money to buy more?: Never true Do you have trouble paying for medicines?: No Do you have trouble getting transportation to medical appointments?: No Do you have trouble paying your heating and electricity bill?: No Do you have trouble taking care of your child, family member or friend?: No Do you have trouble with day-to-day activities such as bathing, preparing meals, shopping, managing finances, etc.?: No Are you currently unemployed and looking for a job?: No Are you interested in more education?: No THRIVE Score: 0 AUDIT C Alcohol Use Questionnaire (AUDIT-C) 1. How often do you have a drink containing alcohol?: Never 3. How often do you have six or more drinks on one occasion?: Never Total Score: 0 GRAZYNA-7 AMB Questionnaire GRAZYNA-7 Date GRAZYNA - 7 assessed: 11/12/24 Feeling nervous, anxious, or on edge: 3 = Nearly every day Not being able to stop or control worryin = Not at all Worrying too much about different things: 0 = Not at all Trouble relaxin = Not at all Being so restless that it is hard to sit still: 0 = Not at all Becoming easily annoyed or irritable: 0 = Not at all Feeling afraid as if something awful might happen: 0 = Not at all Total GRAZYNA-7 score (0-4 normal; 5-9 mild; 10-14 moderate; 15-21 severe): 3 Source: Developed by Drs. Carlos Sanders, Vee Melendrez, Fredrick Andujar and colleagues, with an educational antonio from [employer]. Physical exam (Primary Care) Vital Signs: Last Vital Signs Temp 97.7 F 11/12/24 10:57 Pulse 79 11/12/24 10:57 BP 148/80 H 11/12/24 10:57 Pulse Ox 98 11/12/24 10:57 Oxygen Delivery Method Room Air 11/12/24 10:57 BMI result Body Mass Index 37.6 Tobacco/Smoking Status: Tobacco use Status Tobacco use date assessed 11/12/24 11/12/24 13:27 Patient Tobacco Use Status Never used Tobacco 11/12/24 10:59 e-Cigarette/Vaping Use Never Used 11/12/24 13:27 PHQ-9: PHQ-9 Score PHQ-9: Total score 10 11/12/24 13:27 Depression Screening Interpretation: Positive Depression Screening Follow-up: Declines treatment Thrive Assessment: Date of Thrive Assessment Date Thrive assessed 11/12/24 11/12/24 13:27 Coding Level of Care Code New Pt Level 4 (15163) Complex EM visit Add On G2211 Diagnoses Primary hypertension I10 Hypertension type: primary hypertension Hypercholesteremia E78.00 Malignant melanoma, unspecified site C43.9 Melanoma location: unspecified site Assessment & Plan Assessment & Plan (1) Hypertension: Code(s): I10 - Essential (primary) hypertension Category: Medical Qualifiers: Hypertension type: primary hypertension Qualified Code(s): I10 - Essential (primary) hypertension (2) Hypercholesteremia: Code(s): E78.00 - Pure hypercholesterolemia, unspecified Category: Medical (3) Melanoma: Code(s): C43.9 - Malignant melanoma of skin, unspecified Category: Medical Qualifiers: Melanoma location: unspecified site Qualified Code(s): C43.9 - Malignant melanoma of skin, unspecified Plan 59 yo establish past medical surgical social reviewed htn high today. restart losartan-sent labs ordered. follow up 3 months Orders: Orders Complete Blood Count Auto Diff Today E78.00 - Pure hypercholesterolemia, unspecified, F41.9 - Anxiety disorder, unspecified, I10 - Essential (primary) hypertension, Z13.228 - Encounter for screening for other metabolic disorders Lipid Panel Today E78.00 - Pure hypercholesterolemia, unspecified, F41.9 - A nxiety disorder, unspecified, I10 - Essential (primary) hypertension, Z13.228 - Encounter for screening for other metabolic disorders TSH reflex Free T4 Today E78.00 - Pure hypercholesterolemia, unspecified, F41.9 - Anxiety disorder, unspecified, I10 - Essential (primary) hypertension, Z13.228 - Encounter for screening for other metabolic disorders Comprehensive Met. Panel Today E78.00 - Pure hypercholesterolemia, unspecified, F41.9 - Anxiety disorder, unspecified, I10 - Essential (primary) hypertension, Z13.228 - Encounter for screening for other metabolic disorders Hemoglobin A1c Today E78.00 - Pure hypercholesterolemia, unspecified, F41.9 - Anxiety disorder, unspecified, I10 - Essential (primary) hypertension, Z13.228 - Encounter for screening for other metabolic disorders Medications: New oxycodone Partial Fill upon patient request. Patient may pay out of pocket 5 mg PO Q8H PRN 21 tabs 0RF pain K08.89 - Other specified disorders of teeth and supporting structures losartan 100 mg PO DAILY 90 tabs 3RF
--- OUTSIDE RECORDS SUMMARY | 2024-11-12 13:13 | XMS_ITS | Clinical Summary ---
Author Organization [facility] ity Address [address] [place] [address] Care Team Providers Care Chief Nurse Anesthetist Name Role Phone Diogenes Woodruff MD Primary Care Provider Social History Tobacco Use Types Packs/Day Years [...] age to complete this topic Care Teams Chief Nurse Anesthetist Relationship Specialty Start Date End Date Diogenes Woodruff MD [address] [place] [address] Dr Love [place] PCP - General Internal Medicine 01/01/21
== END 2024-11-12 13:50 | disposition home or self-care (01) ==
LOC: HO.HMCHD 13:10
PROVIDERS: PCP Internal Medicine; Visit Provider Internal Medicine
DX: I10 Essential (primary) hypertension (principal); E78.00 Pure hypercholesterolemia, unspecified; C43.9 Malignant melanoma of skin, unspecified

== ENCOUNTER → 2024-11-12 13:10 | Outpatient (BNVA) | payer OTHER, SELFPAY | PROVIDERS: PCP Internal Medicine; Visit Provider Internal Medicine | DX: I10 Essential (primary) hypertension (principal); E78.00 Pure hypercholesterolemia, unspecified; C43.9 Malignant melanoma of skin, unspecified; K21.9 Gastro-esophageal reflux disease without esophagitis; Z79.899 Other long term (current) drug therapy; Z13.30 Encounter for screening examination for mental health and behavioral disorders, unspecified; Z13.31 Encounter for screening for depression | CPT/HCPCS: 96127; 99202 ==

== ENCOUNTER 2024-11-28 16:32 | Emergency (ER) | payer OTHER, SELFPAY ==
[2024-11-28 16:45] VITALS: BP 140/59; PULSE 61; RESP 16; TEMP 36.8; O2SAT 97; BMI 39.7
--- NOTE | 2024-11-28 16:52 | ED.DENTAL ---
HPI - Dental/Oral General Chief complaint: Dental/Oral Stated complaint: severe tooth ache Time Seen by Provider: 11/28/24 16:52 Source: patient, RN notes reviewed and old records reviewed Mode of arrival: ambulatory Limitations: no limitations History of Present Illness ED Provider: Ava HPI Narrative: Patient is a 59-year-old female with history of hypertension presenting to the emergency department with complaint of severe dental pain in area of known fractured tooth. Was seen at urgent care 2 weeks ago and given a course of antibiotics for dental infection. States that the pain has persisted. Plans to call her dentist tomorrow. Denies any discharge or drainage, difficulty swallowing, swelling to neck or jaw, fevers. MD Complaint: tooth pain Teeth map:  1. Related Data Home Medications ?Medication ?Instructions ?Recorded ?Confirmed naproxen sodium 220 mg capsule 220 mg PO DAILY 11/12/24 (Aleve) Previous Rx's ?Medication ?Instructions ?Recorded amlodipine 5 mg tablet 5 mg PO DAILY #90 tabs 09/10/24 atorvastatin 20 mg tablet 20 mg PO BEDTIME #90 tabs 09/10/24 cholecalciferol (vitamin D3) 25 25 mcg PO DAILY #90 caps 09/10/24 mcg (1,000 unit) capsule famotidine 20 mg tablet 20 mg PO BID #180 tabs 09/10/24 hydrochlorothiazide 25 mg tablet 25 mg PO DAILY #90 tabs 09/10/24 vitamin B complex 1 cap PO DAILY #90 caps 09/10/24 amoxicillin 875 mg-potassium 1 tab PO Q12H 10 days #20 tabs 11/11/24 clavulanate 125 mg tablet losartan 100 mg tablet 100 mg PO DAILY #90 tabs 11/12/24 oxycodone 5 mg tablet 5 mg PO Q8H PRN pain #21 tabs 11/12/24 oxycodone 5 mg tablet 5 mg PO Q8H PRN severe pain (scale 11/28/24 score 7-10) #6 tabs Allergies Allergy/AdvReac Type Severity Reaction Status Date / Time latex (LATEX) Allergy Mild ITCHING Verified 11/28/24 16:49 cats Allergy Unknown Unknown Uncoded 01/29/22 10:39 Review of Systems Review of Systems: As per HPI Yes all other systems are reviewed and are negative Constitutional: Constitutional: Reports as per HPI PMFSH Past Medical History Medical History Hypercholesteremia Hypertension Melanoma Surgical History History of colonoscopy (~02/02/22) History of tooth extraction S/P excision of lipoma History of tubal ligation Hx of section History of tonsillectomy Family History Family History Mother No problems noted. Father No problems noted. Social History Social History Housing: House Housing Other:: Two family house, daughter lives on first floor Do you presently have visiting nurse or other home services: No Patient Tobacco Use Status: Never used Tobacco e-Cigarette/Vaping Use: Never Used Second Hand Smoke Exposure: No Substance Use Type: Marijuana Advance Directives: No Advance Directives Information Provided: Yes Do you have a plan to hurt others: No Plan service: No Current occupational status: other Cognitive needs: No Hearing needs: No Vision needs: Yes (rx glasses) Physical Exam Vital Signs: Vital Signs: Last Vital Signs Temp 98.2 F 11/28/24 16:45 Pulse 61 11/28/24 16:45 Resp 16 11/28/24 16:45 BP 140/59 H 11/28/24 16:45 Pulse Ox 97 11/28/24 16:45 O2 Del Method Room Air 11/28/24 16:45 BMI result Body Mass Index 39.7 Vital signs have been reviewed and appear to be correct. Blood pressure normal. Heart rate normal. Respiratory rate normal. Temperature normal. Oxygen saturation normal. Const: General: cooperative, healthy appearing and no acute distress Orientation/consciousness: oriented to person, oriented to place, oriented to time and patient oriented x3 Limitations: no limitations HEENT: Head: Yes normocephalic and Yes atraumatic Ears: external ears normal General nose exam: Normal external nose present Face and sinus: Yes face symmetric Mouth: oropharynx normal and moist mucous membranes Teeth image:  1. fractured tooth without gingival erythema, edema, fluctuance or drainage Throat: Yes uvula midline Eyes: Pupils: Equal, round and reactive pupils present Neck: Neck: Yes normal visual inspection and Yes supple Resp: Effort & Inspection: normal respiratory effort and able to speak in complete sentences Auscultation: clear to auscultation bilaterally Cardio: Rate: regular rate Rhythm: regular rhythm Heart sounds: S1 normal heart sound present and S2 normal heart sound present GI: Palpation (GI): Soft to palpation and nontender Auscultation: normoactive bowel sounds : General: Yes no CVA tenderness Back/Spine/Pelvis: Back: no CVA tenderness Skin: General skin exam: elasticity normal and turgor normal Neuro: General: oriented to person, oriented to place, oriented to time, patient oriented x3, moves all extremities, no focal motor deficits and CN's II-XI intact bilaterally Cranial nerves: Yes Equal, round and reactive pupils present Cognition (Neuro): normal cognition Extrem: General: Yes full ROM, Yes no pedal edema and Yes no calf tenderness Psych: Mental Status: mental status grossly normal Affect: normal affect Thought process: Normal thought process present Medical Decision Making Medical Decision Making [facility] Narrative: Patient is a 59-year-old female with history of hypertension presenting to the emergency department with complaint of severe dental pain in area of known fractured tooth. On exam patient is awake, A+Ox3, VS WNL, afebrile, normal neurological exam without focal deficits, physical exam findings as above. Given reported symptoms and physical exam findings, initial differential includes but is not limited to dental pain, dental infection, dental abscess. No evidence of infection/abscess. Will send prescription for a few oxycodone for severe pain. Discussed with patient the importance of following up with a dentist tomorrow morning. Return precautions discussed. Patient verbalized understanding of and agreement with plan. Differential Diagnosis Differential Diagnoses: The differential diagnosis associated with the presentation includes as per [facility] External Record Review External record reviewed: Inpatient record, Office record and Outpatient record Prescription Management I considered prescription management with: Pain Medication Discharge Plan Discharge Clinical Impression: Pain, dental Patient Disposition: Home, Self-Care Instructions: Toothache (ED) Additional Instructions: You were evaluated in the emergency department today for complaint of dental pain. IT IS IMPORTANT THAT YOU FOLLOW UP WITH YOUR DENTIST. We recommend that you take 600 mg of ibuprofen or 650 mg Tylenol every 6 hours as needed for pain. If necessary, you can alternate these medications every 3 hours. For example, at 9:00 a.m. take Tylenol, then at noon take ibuprofen, then at 3:00 p.m. take Tylenol, etc.. You are being prescribed a short course of oxycodone for severe pain. Do not take this medication with alcohol. Return to the emergency department if you develop worsening pain, swelling, difficulty swallowing, difficulty breathing, fever, or any other concerning symptoms. Call or visit any of the clinics below to establish care with a dentist: [facility] [address] [place] [address] [facility] [address] [facility], [address] [address] [facility] [address] [place] [address] [facility] [address] [place] [address] [facility] [address] [place] [address] [place] [address] [place] [address] Prescriptions: New oxycodone 5 mg tablet 5 mg PO Q8H PRN (Reason: severe pain (scale score 7-10)) Qty: 6 0RF Rx Instructions: Partial Fill upon patient request. No Action amlodipine 5 mg tablet 5 mg PO DAILY Qty: 90 1RF atorvastatin 20 mg tablet 20 mg PO BEDTIME Qty: 90 1RF cholecalciferol (vitamin D3) 25 mcg (1,000 unit) capsule 25 mcg PO DAILY Qty: 90 1RF famotidine 20 mg tablet 20 mg PO BID Qty: 180 1RF hydrochlorothiazide 25 mg tablet 25 mg PO DAILY Qty: 90 1RF vitamin B complex Capsule 1 cap PO DAILY Qty: 90 1RF naproxen sodium [Aleve] 220 mg capsule 220 mg PO DAILY losartan 100 mg tablet 100 mg PO DAILY Qty: 90 3RF oxycodone 5 mg tablet 5 mg PO Q8H PRN (Reason: pain) Qty: 21 0RF Rx Instructions: Partial Fill upon patient request. Patient may pay out of pocket amoxicillin-pot clavulanate 875-125 mg tablet 1 tab PO Q12H 10 Days Qty: 20 0RF Discharge Date/Time: 11/28/24 17:15 Print Language: Cypriot
[2024-11-28 17:00] VITALS: BP 0/0; PULSE 0; RESP 0; TEMP -17.7; TEMP 0; O2SAT 0
== END 2024-11-28 17:00 | disposition home or self-care (01) ==
PROVIDERS: Emergency Provider Emergency Medicine; PCP Internal Medicine
DX: K08.89 Other specified disorders of teeth and supporting structures (principal); I10 Essential (primary) hypertension; Z79.899 Other long term (current) drug therapy
CPT/HCPCS: 99282; 99283

== ENCOUNTER 2025-02-18 15:44 | Outpatient (AMB) | payer OTHER, SELFPAY ==
[2025-02-18 15:49] VITALS: BP 130/80; PULSE 79; TEMP 36.3; O2SAT 97; BMI 34.8
--- NOTE | 2025-02-18 15:49 | MHC.PC.OV ---
Vital Signs 02/18/25 15:49 Height 5 ft 1 in Weight 83.461 kg BMI 34.8 BP 130/80 Blood Pressure Location Lt brachial Position Sitting Pulse 79 Pulse Source Pulse Oximeter Temp 97.4 F Temp Source Temporal Artery Scan Pulse Oximetry (%) 97 Oxygen Delivery Method Room Air Intake Visit Reasons: 3 Month F/U Infection Control Specialist Required: No Accompanied by: Self / Same As Patient Allergies latex (LATEX) Allergy (Mild, Verified 02/18/25 15:49) ITCHING cats Allergy (Unknown, Uncoded 01/29/22 10:39) Unknown Medication List - Last Reconciled 02/18/25 by BEENA Reich amlodipine 5 mg PO DAILY atorvastatin 20 mg PO DAILY cholecalciferol (vitamin D3) 25 mcg PO DAILY famotidine 20 mg PO BID hydrochlorothiazide 25 mg PO DAILY hydroxyzine HCl 25 mg PO TID PRN losartan 100 mg PO DAILY naproxen sodium (Aleve) 220 mg PO DAILY sucralfate (Carafate) 1 g PO QIDACHS vitamin B complex 1 cap PO DAILY Tobacco use date assessed: 02/18/25 Dental Screening Dental Screen Date: 02/18/25 Did you have a dental visit in the last 12 months?: No Did you have a dental problem in the last 6 months where you did not have access to dental care?: No HPI HPI Comments History of Present Illness Details 59-year-old female with past medical history of hypertension, hyperlipidemia, GERD presenting to the office for follow-up. Last seen in 10/[address] Israel. Hypertension-blood pressure 130/80. On hydrochlorothiazide 25 mg daily and losartan 100 mg daily as well as amlodipine 5 mg daily Hyperlipidemia-on atorvastatin 20 mg daily MSK-severe cervical ddd. stable Melanoma-needs new referral to Dermatology Concerns: Constant nausea. Does not eat much during the day. S/e of fixadent powder but does not want to switch. Occ nausea. Epigastric gnawing discomfort. Using famotidine daily. Tension headache- aleve if needed Anxiety- sudden onset panic with shaking once every 3 months. Started after mother passed. Stops and deep breathing. Health Maintenance: Mammo 05/18 DXA 05/18 Colon 02/01/22 ROS: See hpi EXAM: Constitutional - Awake and Alert, No apparent distress Eyes - PERRL Cardiovascular - S1S2, RRR, No edema Respiratory - Normal lung expansion, Normal respiratory effort, No respiratory distress, CTA bilaterally Extremities - no calf tenderness bilaterally, no swelling Skin - Warm/Dry Neurological - Alert & oriented x3 Psychological - Appropriate affect [facility] Medical History (Updated 02/18/25 @ 16:25 by BEENA Reich) Anxiety Chronic nausea GERD (gastroesophageal reflux disease) Hypercholesteremia Hypertension Melanoma Surgical History History of colonoscopy (~02/02/22) History of tooth extraction S/P excision of lipoma History of tubal ligation Hx of section History of tonsillectomy Family History Mother No problems noted. Father No problems noted. Social History Housing: House Housing Other:: Two family house, daughter lives on first floor Do you presently have visiting nurse or other home services: No Patient Tobacco Use Status: Never used Tobacco e-Cigarette/Vaping Use: Never Used Second Hand Smoke Exposure: No Substance Use Type: Marijuana service: No Current occupational status: other Cognitive needs: No Hearing needs: No Vision needs: Yes (rx glasses) Questionnaire PHQ-9 Over the last 2 weeks, how often have you been bothered by any of the following problems? 1. Little interest or pleasure in doing things: not at all 2. Feeling down, depressed, or hopeless: several days (sometimes anxiety) 3. Trouble falling or staying asleep, or sleeping too much: nearly every day 4. Feeling tired or having little energy: nearly every day 5. Poor appetite or overeating: not at all 6. Feeling bad about yourself - or that you are a failure or have let yourself or your family down: not at all 7. Trouble concentrating on things, such as reading the newspaper or watching television: not at all 8. Moving or speaking so slowly that other people could have noticed. Or the opposite - being so fidgety or restless that you have been moving around a lot more than usual: not at all 9. Thoughts that you would be better off or of hurting yourself in some way: not at all Total score: 7 Source: Developed by Drs. Carlos Sanders, Vee Melendrez, Fredrick Andujar and colleagues, with an educational antonio from [employer]. Thrive Questionnaire Date Thrive assessed: 02/18/25 I am a: Patient Within the past 12 months, did you worry whether your food would run out before you got money to buy more?: Never true Do you have trouble paying for medicines?: No Do you have trouble getting transportation to medical appointments?: No Do you have trouble paying your heating and electricity bill?: No Do you have trouble taking care of your child, family member or friend?: No Do you have trouble with day-to-day activities such as bathing, preparing meals, shopping, managing finances, etc.?: No Are you currently unemployed and looking for a job?: No Are you interested in more education?: No THRIVE Score: 0 AUDIT C Alcohol Use Questionnaire (AUDIT-C) 1. How often do you have a drink containing alcohol?: Never 3. How often do you have six or more drinks on one occasion?: Never Total Score: 0 GRAZYNA-7 AMB Questionnaire GRAZYNA-7 Date GRAZYNA - 7 assessed: 02/18/25 Feeling nervous, anxious, or on edge: 0 = Not at all Not being able to stop or control worryin = Not at all Worrying too much about different things: 0 = Not at all Trouble relaxin = Not at all Being so restless that it is hard to sit still: 0 = Not at all Becoming easily annoyed or irritable: 0 = Not at all Feeling afraid as if something awful might happen: 0 = Not at all Total GRAZYNA-7 score (0-4 normal; 5-9 mild; 10-14 moderate; 15-21 severe): 0 Source: Developed by Drs. Carlos Sanders, Vee Melendrez, Fredrick Andujar and colleagues, with an educational antonio from [employer]. Physical exam (Primary Care) Vital Signs: Last Vital Signs Temp 97.4 F 02/18/25 15:49 Pulse 79 02/18/25 15:49 BP 130/80 02/18/25 15:49 Pulse Ox 97 02/18/25 15:49 Oxygen Delivery Method Room Air 02/18/25 15:49 BMI result Body Mass Index 34.8 Tobacco/Smoking Status: Tobacco use Status Tobacco use date assessed 02/18/25 02/18/25 15:50 Patient Tobacco Use Status Never used Tobacco 02/18/25 15:50 e-Cigarette/Vaping Use Never Used 02/18/25 15:50 PHQ-9: PHQ-9 Score PHQ-9: Total score 7 02/18/25 15:58 Thrive Assessment: Date of Thrive Assessment Date Thrive assessed 02/18/25 02/18/25 15:50 Coding Level of Care Code Est Pt Level 4 (52727) Complex EM visit Add On G2211 Diagnoses Primary hypertension I10 Hypertension type: primary hypertension Hypercholesteremia E78.00 Chronic nausea R11.0 Tension headache G44.209 Anxiety F41.9 Assessment & Plan Assessment & Plan (1) Hypertension: Code(s): I10 - Essential (primary) hypertension Category: Medical Qualifiers: Hypertension type: primary hypertension Qualified Code(s): I10 - Essential (primary) hypertension Plan: Controlled. Continue losartan, hydrochlorothiazide, amlodipine (2) Hypercholesteremia: Code(s): E78.00 - Pure hypercholesterolemia, unspecified Category: Medical Plan: Lipid panel ordered. Advised she can take atorvastatin 20 mg every morning (3) Chronic nausea: Code(s): R11.0 - Nausea Category: Medical Plan: Advised to hold famotidine for least 2 weeks then will check for H pylori. Can use sucralfate in the meantime (4) Tension headache: Code(s): G44.209 - Tension-type headache, unspecified, not intractable Category: Medical Plan: Aleve PRN. Recommend gentle cptdy-hy-dzwcco exercises of the cervical spine (5) Anxiety: Code(s): F41.9 - Anxiety disorder, unspecified Category: Medical Plan: With panic. Trial hydroxyzine and use healthy coping mechanisms as discussed in the office Plan Follow-up in the office in 6 months. Labs to be completed following visit today Given names of dermatologists in the area for follow-up on melanoma and skin check Orders: Orders Basic Metabolic Panel Today E78.00 - Pure hypercholesterolemia, unspecified, I10 - Essential (primary) hypertension, K21.9 - Gastro-esophageal reflux disease without esophagitis, R10.13 - Epigastric pain, R11.0 - Nausea Complete Blood Count Auto Diff Today E78.00 - Pure hypercholesterolemia, unspecified, I10 - Essential (primary) hypertension, K21.9 - Gastro-esophageal reflux disease without esophagitis, R10.13 - Epigastric pain, R11.0 - Nausea TSH reflex Free T4 Today E78.00 - Pure hypercholesterolemia, unspecified, I10 - Essential (primary) hypertension, K21.9 - Gastro-esophageal reflux disease without esophagitis, R10.13 - Epigastric pain, R11.0 - Nausea Liver Panel Today E78.00 - Pure hypercholesterolemia, unspecified, I10 - Essential (primary) hypertension, K21.9 - Gastro-esophageal reflux disease without esophagitis, R10.13 - Epigastric pain, R11.0 - Nausea Lipid Panel Today E78.00 - Pure hypercholesterolemia, unspecified, I10 - Essential (primary) hypertension, K21.9 - Gastro-esophageal reflux disease without esophagitis, R10.13 - Epigastric pain, R11.0 - Nausea Hemoglobin A1c Today E78.00 - Pure hypercholesterolemia, unspecified, I10 - Essential (primary) hypertension, K21.9 - Gastro-esophageal reflux disease without esophagitis, R10.13 - Epigastric pain, R11.0 - Nausea H pylori Ag Stool Today R10.13 - Epigastric pain, R11.0 - Nausea Medications: New sucralfate (Carafate) 1 g PO QIDACHS 120 tabs 0RF hydroxyzine HCl 25 mg PO TID PRN 30 tabs 0RF itching Changed From atorvastatin 20 mg PO BEDTIME 90 tabs 1RF To atorvastatin 20 mg PO DAILY 90 tabs 1RF [facility]
--- OUTSIDE RECORDS SUMMARY | 2025-02-18 16:05 | XMS_ITS | Clinical Summary ---
Author Organization [facility] ity Address [address] [place] [address] Care Team Providers Care Cattle Brander Name Role Phone Diogenes Woodruff MD Primary Care Provider [phone] Social History Tobacco Use Types Packs/Day Years [...] 02/11/2014 Zoster Vaccines (1 of 2) 02/11/2014 Depression Screening 05/26/2024 COVID-19 Vaccine (1 - 2023-2 5 season) 2025 Influenza Vaccine (#1) 2025 RSV Immunization Adult Patie nts (1 [...] age to complete this topic Care Teams Cattle Brander Relationship Specialty Start Date End Date Diogenes Woodruff MD [address] [place] [address] Dr Kate [place] PCP - General Internal Medicine 01/01/21
== END 2025-02-18 16:25 | disposition home or self-care (01) ==
LOC: HO.HMCHD 15:45
PROVIDERS: PCP Internal Medicine; Visit Provider Physician Assistant
DX: I10 Essential (primary) hypertension (principal); E78.00 Pure hypercholesterolemia, unspecified; R11.0 Nausea; G44.209 Tension-type headache, unspecified, not intractable; F41.9 Anxiety disorder, unspecified

== ENCOUNTER → 2025-02-18 15:44 | Outpatient (BNVA) | payer OTHER, SELFPAY | PROVIDERS: PCP Internal Medicine; Visit Provider Physician Assistant | DX: I10 Essential (primary) hypertension (principal); E78.00 Pure hypercholesterolemia, unspecified; R11.0 Nausea; G44.209 Tension-type headache, unspecified, not intractable; F41.9 Anxiety disorder, unspecified; Z79.899 Other long term (current) drug therapy; Z13.30 Encounter for screening examination for mental health and behavioral disorders, unspecified; Z13.39 Encounter for screening examination for other mental health and behavioral disorders | CPT/HCPCS: 99212 ==